=== PATIENT | female | born 1950 | race Caucasian/White ===

== ENCOUNTER 2018-02-26 12:34 | Day surgery (SDC) | payer OTHER ==
--- OUTSIDE RECORDS SUMMARY | 2018-02-26 12:38 | XMS REPORT | Clinical Summary ---
:1950 Author Organization [facility] Address [address] [place] [address] Care Team Providers Name Role Phone Lindsey Epperson MD Primary Care Provider Allergies Active Allergy Reactions Severity Noted Date Comments Adhesive 12/10/2015 Ferumoxytol 12/10/2015 Penicillins 12/10/2015 Sulfa (Sulfonamide Antibiotics) 12/10/2015 Tetanus Toxoid Adsorbed 12/10/2015 Dulaglutide 01/02/2018 abdominal pain Current Medications Prescription Sig. Disp. Refills Start End Date Status Date pramipexole (MIRAPEX) Take 0.5 mg by Active 0.5 MG tablet mouth 2 (two) times a day. Takes 1 tab in the morning and 2 tabs at night montelukast Take 10 mg by Active (SINGULAIR) 10 mg mouth nightly. 6 tablet multivitamin Take 1 tablet Active (THERAGRAN) tablet by mouth daily. AMPHETAMINE-DEXTROAMP 30 mg every Active HETAMINE 20 MG tablet morning. 6 biotin 1 mg capsule Take by mouth Active daily. cholecalciferol, Take 2,000 Active vitamin D3, (VITAMIN Units by mouth D3) 1,000 unit daily. capsule calcium Take 1 tablet Active citrate-vitamin D3 by mouth 2 (CITRACAL+D) 315-200 (two) times a mg-unit per tablet day. albuterol (PROAIR Inhale 2 puffs Active HFA) 90 mcg/actuation every 6 (six) inhaler hours as needed for wheezing. butalbital-acetaminop TAKE 1 TO 2 30 tablet 1 Active hen-caff (FIORICET, TABLETS EVERY 6 6 ESGIC) 50-325-40 mg HOURS NEEDED per tablet FOR HEADACHE lidocaine (XYLOCAINE) apply 1-2 grams Active 5 % ointment TO affected 6 AREAS FOUR TIMES DAILY, apply in combination WITH topical PAIN cream (USE last) ONETOUCH ULTRA TEST CHECK TWICE PER 3 Active strip test strips DAY 6 ALPRAZolam (XANAX) Take 0.5 mg by 5 Active 0.5 MG tablet mouth nightly. 6 pantoprazole Take 40 mg by Active (PROTONIX) 40 MG EC mouth daily. tablet buPROPion SR Take 300 mg by 5 Active (WELLBUTRIN SR) 150 mouth every 7 MG 12 hr tablet morning. busPIRone (BUSPAR) 10 1/2 tablet bid 30 tablet 11 Active MG tablet prn 7 levothyroxine Take 1 tablet 30 tablet 05/13/20 Active (SYNTHROID) 150 mcg (150 mcg total) 7 18 tablet by mouth every morning. HYDROcodone-acetamino Active phen (NORCO) 5-325 mg 8 per tablet metoprolol succinate TAKE 1 TABLET 90 tablet 3 Active XL (TOPROL-XL) 25 mg BY MOUTH EVERY 7 24 hr tablet DAY (DISCONTINUE 50MG) citalopram (CeleXA) Take 1 tablet 90 tablet 1 Active 40 MG tablet (40 mg total) 7 by mouth nightly. TAKE 1 TABLET EVERY DAY coenzyme Q10 200 mg Take 200 mg by Active capsule mouth daily. B INFANTIS/B ANI/B Take by mouth. Active WENDY/B BIFID (PROBIOTIC 4X ORAL) fluticasone (FLONASE) 2 sprays by Active 50 mcg/actuation Each Nare route nasal spray daily. ipratropium 2 sprays into Active (ATROVENT) 0.06 % each nostril 4 nasal spray (four) times a day. mometasone-formoterol Inhale 2 puffs Active (DULERA 100) 100-5 2 (two) times a mcg/actuation inhaler day. rosuvastatin TAKE 1 TABLET 90 tablet 3 Active (CRESTOR) 10 MG BY MOUTH EVERY 8 tablet DAY ranitidine (ZANTAC) Take 1 tablet 90 tablet 3 Active 300 MG tablet (300 mg total) 8 by mouth nightly. triamterene-hydrochlo TAKE 1 TABLET 90 tablet 3 Active rothiazid BY MOUTH EVERY 8 (MAXZIDE-25) 37.5-25 DAY mg per tablet exenatide Inject 2 mg 4 Syringe 5 Active microspheres under the skin 8 (BYDUREON BCISE) 2 once a week. mg/0.85 mL auto-injector glimepiride (AMARYL) TAKE 1 TABLET 30 tablet 0 Active 2 MG tablet BY MOUTH EVERY 8 DAY BEFORE BREAKFAST buPROPion XL Take 150 mg by 05/16/20 Discontinued (WELLBUTRIN XL) 150 mouth every 17 MG 24 hr tablet morning. citalopram (CeleXA) Take 40 mg by 08/18/20 Discontinued 40 MG tablet mouth nightly. 5 17 TAKE 1 TABLET EVERY DAY esomeprazole (NexIUM) Take 40 mg by 05/16/20 Discontinued 40 MG capsule mouth 2 (two) 17 times a day. HYDROcodone-acetamino Take 1 tablet 07/10/20 Discontinued phen (NORCO) 5-325 mg by mouth as 17 per tablet needed. clobetasol (TEMOVATE) as needed. 05/16/20 Discontinued 0.05 % ointment 6 17 nystatin (MYCOSTATIN) Apply topically 30 g 0 03/22/20 powder 4 (four) times 6 17 a day. ranitidine (ZANTAC) Take 1 tablet 90 tablet 3 05/16/20 Discontinued 300 MG (300 mg total) 7 17 tabletIndications: by mouth Gastroesophageal nightly. reflux disease with esophagitis VYVANSE 60 mg capsule Take 60 mg by 0 05/16/20 Discontinued mouth as 6 17 needed. rosuvastatin Take 1 tablet 90 tablet 1 05/29/20 Discontinued (CRESTOR) 10 MG (10 mg total) 7 17 tablet by mouth daily. triamterene-hydrochlo TAKE 1 TABLET 90 tablet 3 12/16/19 Discontinued rothiazid BY MOUTH EVERY 7 18 (MAXZIDE-25) 37.5-25 DAY mg per tablet metoprolol succinate TAKE 1 TABLET 90 tablet 1 07/25/20 Discontinued XL (TOPROL-XL) 25 mg BY MOUTH EVERY 7 17 24 hr tablet DAY (DISCONTINUE 50MG) levothyroxine Take 1 tablet 30 tablet 1 04/12/20 Discontinued (SYNTHROID) 200 mcg (200 mcg total) 7 17 tablet by mouth every morning. linagliptin Take 1 tablet 60 tablet 0 07/10/20 Discontinued (TRADJENTA) 5 mg (5 mg total) by 7 17 tablet mouth daily with breakfast. levothyroxine Take 1 tablet 30 tablet 11 05/12/20 Discontinued (SYNTHROID, LEVOXYL) (150 mcg total) 7 17 150 mcg tablet by mouth every morning. levothyroxine Take 137 mcg by 30 tablet 11 05/13/20 Discontinued (SYNTHROID, LEVOXYL) mouth every 7 17 137 mcg tablet morning. metoprolol succinate 08/29/19 Discontinued XL (TOPROL XL) 25 mg 8 18 24 hr tablet [id number] TAKE TWO 1 07/10/20 Discontinued hydrocod 320.5-30-16 CAPSULES BY 7 17 mg capsule MOUTH EVERY 4 TO 6 HOURS NEEDED FOR PAIN HYDROcodone-acetamino 1 po q 6-8 60 tablet 05/26/20 phen (NORCO) 7.5-325 hours prn pain 7 17 mg per tablet rosuvastatin TAKE 1 TABLET 90 tablet 1 11/15/19 Discontinued (CRESTOR) 10 MG BY MOUTH EVERY 7 18 tablet DAY predniSONE 1 po tid x 3 18 tablet 0 06/09/20 (DELTASONE) 20 mg days, 1 po bid 7 17 tablet x 3 days, then 1 po daily linagliptin Take 1 tablet 21 tablet 0 12/07/19 Discontinued (TRADJENTA) 5 mg (5 mg total) by 7 18 tablet mouth daily with breakfast. ranitidine (ZANTAC) Take 300 mg by 11 12/13/19 Discontinued 300 MG tablet mouth nightly. 7 18 citalopram (CeleXA) Take 1 tablet 90 tablet 1 08/18/20 Discontinued 40 MG tablet (40 mg total) 7 17 by mouth nightly. TAKE 1 TABLET EVERY DAY traMADol (ULTRAM) 50 Take 1 tablet 20 tablet 0 10/09/19 mg tablet (50 mg total) 8 18 by mouth every 4 (four) hours as needed for moderate pain for up to 10 days. gabapentin Take 1 tablet 30 capsule 0 12/07/19 Discontinued (NEURONTIN) 300 mg up to 3 times 8 18 capsule daily for nerve pain. dulaglutide Inject 0.75 mg 4 Syringe 11 01/05/20 Discontinued (TRULICITY) 0.75 under the skin 8 18 mg/0.5 mL pen once a week. injectorIndications: Type 2 diabetes mellitus without complication, with long-term current use of insulin ranitidine (ZANTAC) Take 1 tablet 90 tablet 3 12/13/19 Discontinued 300 MG tablet (300 mg total) 8 18 by mouth nightly. glimepiride (AMARYL) Take 1 tablet 30 tablet 0 02/26/20 Discontinued 2 MG tablet (2 mg total) by 8 18 mouth daily before breakfast. Active Problems Problem Noted Date History of EMG 12/09/2017 Overview: 11/2017 left carpal tunnel, And sensorineuropathy Dr Dutta Breakage of internal fixation device in bone 08/11/2017 H/O mammogram 07/18/2017 Overview: 06/2017 wnjuly Chronic bilateral low back pain without sciatica 05/31/2017 Bursitis of hip 05/17/2017 Postsurgical arthrodesis status 05/16/2017 Spondylosis of lumbar region without myelopathy or radiculopathy 05/16/2017 Nonallopathic lesion of hip region 05/16/2017 Status post lumbar laminectomy 05/16/2017 Skin cancer 03/17/2017 Overview: 02/2017 right cheek melanoma in situ Right hernandez benign Post-traumatic osteoarthritis of right foot 01/24/2017 Breakdown (mechanical) of other internal orthopedic devices, implants and grafts, initial encounter History of nuclear stress test 01/06/2017 Overview: 12/26/2016 Dr Landers wnl Encounter for eye exam in patient with type 2 diabetes mellitus 07/22/2016 Overview: 06/2016 wnl 07/2017 Dr Mccloud is wnl 01/2018 Dr Mccloud is wnl Hx of bone density study 06/26/2016 Overview: 05/2016 L hip -0.7 and spine not done Dr Lombardi Gastroesophageal reflux disease 12/10/2015 Hyperhidrosis 12/10/2015 Insomnia 12/10/2015 Restless legs syndrome 12/10/2015 Iron deficiency 05/07/2014 Arthritis 06/22/2012 Cough 06/22/2012 HLD (hyperlipidemia) 06/22/2012 Overview: Overview: SNOMED/[place] [id number] Hypertension 06/22/2012 Overview: Overview: Evaluation Dr. Landers 08/2014 echo with HTN heart disease, RBBB, left ventricular outflow gradient without obstruction, mild LVH, small pericardial effusion Hypothyroidism 06/22/2012 Overview: Overview: 09/2015 add 30mg of armour to her 120mg Type 2 diabetes mellitus without complication, with long-term current use of insulin Ulcerative colitis 06/22/2012 Overview: Overview: Dr. Hart for consideration Dr. Cleveland Mixon Encounters Date Type Specialty Care Team Description 02/25/2018 Refill Internal Jackie Epperson MD 01/23/2018 Orders Only Jackie Callaway MD 01/09/2018 Hospital Encounter Aris Rust MD 01/09/2018 Hospital Encounter Aris Rust MD 01/09/2018 Hospital Encounter Aris Rust MD 01/09/2018 Procedure Pass Radiology 01/09/2018 Procedure Pass Radiology 01/09/2018 Ancillary Orders Aris Rust MD 01/09/2018 Procedure Pass Radiology 01/09/2018 Ancillary Orders Aris uRst MD 01/04/2018 Office Visit Orthopedic Cosculluela, Post-traumatic Surgery Efraín Pang MD osteoarthritis of right foot (Primary Dx) 01/03/2018 Orders Only Orthopedic Stein, Pelvic pain (Primary Dx) Surgery Emilie, MA 01/02/2018 Orders Only Jackie Callaway MD 01/01/2018 Telephone Internal Jackie Epperson MD 12/15/2017 Refill Internal Jackie Epperson MD 12/14/2017 Orders Only Orthopedic Pepe Elder Lipoma of right lower Surgery JAKOB Caban extremity (Primary Dx) 12/12/2017 Orders Only Internal Jackie Epperson MD 12/12/2017 Refill Internal Paola Toney MA [facility] 12/06/2017 Office Visit Internal Zeenat, Chronic left-sided low back pain without sciatica (Primary Dx); Jackie Motley, Type 2 diabetes mellitus without complication, with long-term current use of insulin; Essential hypertension; Irritant contact dermatitis due to other agents; Obesity (BMI 30.0-34.9) 12/06/2017 Orders Only Orthopedic Gorge Capone, Post-traumatic Surgery LAMAR osteoarthritis of right foot (Primary Dx) 12/04/2017 Documentation Orthopedic Lashay Zarate, Surgery [place] 11/29/2017 Office Visit Orthopedic Aris Meehan Chronic bilateral low back pain without sciatica (Primary Dx); Wai Encinas MD Spondylosis of lumbar region without myelopathy or radiculopathy; Sagittal plane imbalance; Adjacent segment disease with kyphosis; Spinal stenosis of lumbar region with neurogenic claudication; Chronic low back pain without sciatica, unspecified back pain laterality; Degeneration of intervertebral disc of lumbar region 11/16/2017 Office Visit General Surgery Gorge Hart Peristomal dermatitis ( Primary Dx); MD Omid Parastomal hernia without obstruction or gangrene Chuyita Ortiz NP-C 11/14/2017 Refill Internal Jackie Epperson MD 11/02/2017 Office Visit Orthopedic Maria E Post-traumatic Surgery Efraín Pang MD osteoarthritis of right foot (Primary Dx) 10/27/2017 Telephone Orthopedic Wendy Hoover, Wai MA 10/05/2017 Office Visit Velia Can of internal Surgery Efraín Pang MD fixation device in bone, initial encounter (Primary Dx) 09/19/2017 Hospital Encounter Orthopedic Maria E Post-traumatic Surgery Efraín Pang MD osteoarthritis of right foot (Primary Dx) 09/19/2017 Anesthesia Event Orthopedic Felipe Szymanski, Surgery Agustina Reveles MD 09/19/2017 Procedure Pass Orthopedic Surgery 09/19/2017 Surgery Orthopedic Cosmariluzlljonas, RIGHT FOOT HARDWARE Surgery Efraín Pang MD REMOVAL 09/12/2017 Procedure Pass Orthopedic Surgery 08/29/2017 Office Visit Internal Zeenat, Pre-operative examination (Primary Dx); Jackie Motley, Essential hypertension; Impaired fasting glucose; Other specified hypothyroidism; Other hyperlipidemia; Gastroesophageal reflux disease without esophagitis; History of DVT (deep vein thrombosis) 08/18/2017 Telephone Internal Mckay, Jackie Theodore MA 08/11/2017 Orders Only Orthopedic Wendy Hoover, Breakage of internal Surgery [place] fixation device in bone, initial encounter (Primary Dx) 08/07/2017 Office Visit Orthopedic Maria E, Breakdown (mechanical) of other internal orthopedic devices, implants and grafts, initial encounter ( Primary Dx); Surgery Efraín Pang MD Post-traumatic osteoarthritis of right foot 08/04/2017 Telephone Internal ZeenatJackie burnette MD 08/01/2017 Telephone Internal ZeenatJackie burnette MD 07/26/2017 Office Visit Orthopedic Elvi Iverson Chronic bilateral low back pain without sciatica (Primary Dx); Wai Caban MD Postsurgical arthrodesis status; Spondylosis of lumbar region without myelopathy or radiculopathy 07/25/2017 Refill Internal ZeenatJackie burnette MD 07/17/2017 Orders Only Internal [place], Visit for screening mammogram; Jackie Theodore MA Parastomal hernia of ileal conduit 07/10/2017 Office Visit Internal Zeenat, Abnormal thyroid function test ( Primary Dx); Jackie Motley, Muscle pain 06/26/2017 Hospital Encounter Radiology Elvi Iverson HNP (herniated nucleus RMD Travis pulposus), lumbar 06/23/2017 Hospital Encounter Radiology Elvi Iverson MD (Department/Provider) 06/19/2017 Orders Only Orthopedic CASSIDY Vargas (herniated nucleus Surgery GIAN Ochoa-C pulposus), lumbar (Primary Dx) 06/15/2017 Telephone Orthopedic Wai Vargas, PA-C 06/14/2017 Telephone Internal Zeen[place], Visit for screening Jackie Motley, mammogram (Primary Dx) 06/12/2017 Procedure Pass Radiology 06/12/2017 Telephone Orthopedic Sam, Status post arthrodesis (Primary Dx); Surgery Anai Caban PA-C Lumbar post-laminectomy syndrome 05/31/2017 Office Visit Orthopedic Elvi Iverson Postsurgical arthrodesis status (Primary Dx); Surgery MD Mee Status post lumbar laminectomy; Chronic bilateral low back pain without sciatica 05/29/2017 Refill Internal Jackie Epperson MD 05/24/2017 Clinical Support Internal Flu vaccine need (Primary Medicine Dx) 05/18/2017 Hospital Encounter Radiology Elvi Iverson Nonallopathic lesion of MD Mee hip region 05/16/2017 Office Visit Orthopedic Elvi Iverson Status post lumbar laminectomy (Primary Dx); Surgery MD Mee Nonallopathic lesion of hip region; Postsurgical arthrodesis status; Spondylosis of lumbar region without myelopathy or radiculopathy; Bursitis of hip, left 05/16/2017 Procedure Pass Radiology 05/16/2017 Ancillary Orders Elvi Kendrick Status post lumbar Surgery MD Mee laminectomy 05/13/2017 Telephone Internal Jackie Epperson MD 05/12/2017 Orders Only Internal Jackie Epperson MD 05/04/2017 Telephone Orthopedic Sam, Wai Caban PA-C 04/12/2017 Office Visit Internal Zeenat, Abnormal thyroid function test ( Primary Dx); Jackie Motley IFG (impaired fasting glucose); Pure hypercholesterolemia 03/17/2017 Abstract Internal Jackie Epperson MD 03/02/2017 Telephone Internal ZeenatJackie burnette MD after 02/25/2017 Immunizations Name Dates Previously Given Next Due FLUZONE HIGH-DOSE PF 05/24/2017 Influenza Trivalent 05/18/2011 Influenza Whole 05/22/2016, 06/04/2015 Pneumococcal Conjugate 13-Valent 07/10/2017 Family History Medical History Relation Name Comments Crohn's disease Daughter Cancer Father Heart disease Father Colon cancer Maternal Grandfather Diabetes Maternal Grandfather Hypertension Mother Kidney disease Mother Osteoporosis Mother Rheumatologic disease Mother Scoliosis Mother Hyperlipidemia Sister Hypertension Sister Ulcerative colitis Son Relation Name Status Comments Daughter Father Maternal Grandfather Mother Alive Sister Alive Son Social History Tobacco Use Types Packs/Day Years Used Date Former Smoker Cigarettes 0.25 15 08/26/1967 - 11/26/1978 Smokeless Tobacco: Never Used Alcohol Use Drinks/Week oz/Week Comments No Sex Assigned at Date Recorded Not on file Last Filed Vital Signs Vital Sign Reading Time Taken Blood Pressure 120/76 12/06/2017 3:10 PM CDT Pulse 90 12/06/2017 2:28 PM CDT Temperature 36.5 C (97.7 F) 09/19/2017 3:13 PM [employer] Respiratory Rate 14 09/19/2017 3:13 PM [employer] Oxygen Saturation 98% 12/06/2017 2:28 PM CDT Inhaled Oxygen Concentration - - Weight 93.4 kg (206 lb) 12/06/2017 2:28 PM CDT Height 165.1 cm (5' 5") 12/06/2017 2:28 PM CDT Body Mass Index 34.28 12/06/2017 2:28 PM CDT Plan of Treatment Health Maintenance Due Date Last Done Comments BREAST CANCER SCREENING 2001 SHINGRIX VACCINE (#1) 2001 ZOSTER VACCINE 2011 PNEUMOCOCCAL POLYSACCHARIDE VACCINE 2016 AGE 65 AND OVER DIABETIC FOOT EXAM 09/07/2017 09/07/2016, 09/07/2016 INFLUENZA VACCINE 03/28/2018 05/24/2017, 05/22/2016, 05/18/2016, Additional history exists DIABETIC RETINAL EYE EXAM 02/09/2020 02/08/2018, 08/24/2016 COLON CANCER SCREENING 08/22/2024 08/22/2014 PNEUMOCOCCAL-13 Completed 07/10/2017 Procedures Procedure Name Priority Date/Time Associated Comments Diagnosis MRI ABD/PELVIC Routine 01/02/2018 5:00 Results for this EXTERNAL STUDY PM CDT procedure are in the results section. MRI SPINE EXTERNAL Routine 01/02/2018 4:35 Results for this STUDY PM CDT procedure are in the results section. MRI SPINE EXTERNAL Routine 01/02/2018 4:19 Results for this STUDY PM CDT procedure are in the results section. POC GLUCOSE Routine 09/19/2017 9:20 Results for this AM [employer] procedure are in the results section. OR FL > 1 HOUR Routine 09/19/2017 9:07 Results for this AM [employer] procedure are in the results section. NH AN ELECTIVE Routine 09/19/2017 7:46 SUPRAGLOTTIC AIRWAY AM [employer] Procedure Note - Tee Rosales CRNA - 09/19/2017 7:46 AM [employer] Airway Date/Time: 09/19/2017 7:35 AM Performed by: TEE ROSALES Authorized by: AGUSTINA DERAS Location: OR Urgency: Elective Difficult Airway: No Resident/BACK SHOE WORKER/AA: TEE ROSALES Performed by: resident/BACK SHOE WORKER/AA Preoxygenated with 100% O2: Yes C-spine Precautions Maintained Throughout: Yes Mask Ventilation: Easy mask Final Airway Type: Supraglottic airway Final LMA: I-Gel LMA Size: 4 Number of Attempts at Approach: 1 REMOVAL, HARDWARE, FOOT 09/19/2017 7:30 AM [employer] Breakage of internal fixation device in bone, initial encounter Case Notes LARGE C-ARM, @9013 [employer]IA [employer] R/S FROM 09/05 TO 09/12-08/31/17TW, @0848 [employer] R/S FROM 09/12 TO 09/19-09/12/17TW Special Needs 1 HR PROCEDURE, SUPINE POSITION, LARGE C-ARM, ALBA [employer] SCREW REMOVAL SET POC GLUCOSE Routine 09/19/2017 7:19 Results for AM [employer] this procedure are in the results section. HEMOGLOBIN A1C Routine 08/29/2017 12:42 Results for PM [employer] this procedure are in the results section. LIPID PANEL Routine 08/29/2017 12:42 Results for PM [employer] this procedure are in the results section. PT AND PTT Routine 08/29/2017 12:42 History of DVT (deep vein Results for PM [employer] thrombosis) this procedure are in the results section. URINALYSIS, Routine 08/29/2017 12:42 Essential hypertension Results for COMPLETE, WITH PM [employer] this procedure REFLEX TO CULTURE are in the results section. CBC WITH PLATELET Routine 08/29/2017 12:42 Pre-operative examination Results for AND DIFFERENTIAL PM [employer] this procedure are in the results section. COMPREHENSIVE Routine 08/29/2017 12:42 Pre-operative examination Results for METABOLIC PANEL PM [employer] Essential hypertension this procedure Impaired fasting glucose are in the results section. XR ANKLE 3+ VW RIGHT Routine 08/07/2017 2:04 Breakdown (mechanical) of Results for PM [employer] other internal orthopedic this procedure devices, implants and are in the grafts, initial encounter results Post-traumatic section. osteoarthritis of right foot XR FOOT 3+ VW RIGHT Routine 08/07/2017 2:04 Breakdown (mechanical) of Results for PM [employer] other internal orthopedic this procedure devices, implants and are in the grafts, initial encounter results Post-traumatic section. osteoarthritis of right foot T4, FREE Routine 07/10/2017 11:35 Abnormal thyroid function Results for AM [employer] test this procedure are in the results section. THYROID STIMULATING Routine 07/10/2017 11:35 Abnormal thyroid function Results for HORMONE AM [employer] test this procedure are in the results section. CREATINE KINASE, Routine 07/10/2017 11:35 Muscle pain Results for TOTAL (CPK) AM [employer] this procedure are in the results section. HC INJ EPID Routine 06/26/2017 12:06 HNP (herniated nucleus Results for LUM/SACRAL UNI W IMG PM CDT pulposus), lumbar this procedure are in the results section. POC GLUCOSE Routine 06/26/2017 10:45 Results for AM CDT this procedure are in the results section. MRI LUMBAR SPINE WO Routine 06/14/2017 11:11 Status post arthrodesis Results for CONTRAST AM CDT Lumbar post-laminectomy this procedure syndrome are in the results section. MRI LOWER EXTREMITY Routine 05/18/2017 6:03 Nonallopathic lesion of Results for JOINT W WO CONTRAST PM CDT hip region this procedure RIGHT are in the results section. NH INJECT TRIGGER Routine 05/17/2017 7:22 Bursitis of hip, left Results for POINT, 1 OR 2 AM CDT this procedure are in the results section. XR HIP 2-3 VIEWS Routine 05/16/2017 3:47 Nonallopathic lesion of Results for RIGHT PM CDT hip region this procedure are in the results section. XR LUMBAR SPINE Routine 05/16/2017 3:14 Status post lumbar Results for COMPLETE 4+ VW PM CDT laminectomy this procedure are in the results section. MICROALBUMIN / Routine 05/10/2017 4:11 Results for CREATININE URINE PM CDT this procedure RATIO are in the results section. T4, FREE Routine 05/10/2017 4:11 Abnormal thyroid function Results for PM CDT test this procedure are in the results section. THYROID STIMULATING Routine 05/10/2017 4:11 Abnormal thyroid function Results for HORMONE PM CDT test this procedure are in the results section. HEMOGLOBIN A1C Routine 05/10/2017 4:11 IFG (impaired fasting Results for PM CDT glucose) this procedure are in the results section. COMPREHENSIVE Routine 05/10/2017 4:11 IFG (impaired fasting Results for METABOLIC PANEL PM CDT glucose) this procedure are in the results section. LIPID PANEL Routine 05/10/2017 4:11 Pure hypercholesterolemia Results for PM CDT this procedure are in the results section. after 02/25/2017 Results MRI Abd/Pelvic External Study (01/02/2018 5:00 PM) Narrative Performed At This exam was not acquired at a [facility] facility and [facility] not [facility] interpreted by a [facility] Provider.The exam was imported into our imaging system for comparisons purposes. Performing Organization Address City/[facility]/Zipcode Phone Number [facility] [address] [place] [address] MRI Spine External Study (01/02/2018 4:35 PM)Only the most recent of2 resultswithin the time period is included. Narrative Performed At This exam was not acquired at a [facility] facility and has not been [facility] interpreted by a [facility] Provider.The exam was imported into our imaging system for comparisons purposes. Performing Organization Address [facility] Phone Number [facility] [address] [place] [phone] POC glucose (09/19/2017 9:20 AM)Only the most recent of3 resultswithin the time period is included. POC glucose 122 (H) 65 - 99 mg/dL [facility] DEPARTMENT OF PATHOLOGY AND Comment: [facility]IC[facility] Notified RN Meter ID: [id number] [employer] [place] Shearer: Juve Borja Performing Organization Address City/[facility]/Zipcode Phone Number [facility] DEPARTMENT OF PATHOLOGY AND [address] [place] [address] MEDICINE [place] > I Hour (09/19/2017 9:07 AM) Narrative Performed At IMPRESSION: C-arm fluoroscopy over 1 hour was provided in the OR for the [facility] referring physician. A radiologist was not present during the procedure. Refer to the Operative report issued by the performing provider for procedure details. LOCATION:[facility] 19 OR ROOM 3 PROCEDURE:RIGHT FOOT HARDWARE REMOVAL START TIME:729 END TIME:906 FLUORO TIME:1 MIN 03 SECS DOSE (mGy):1.73 mGy TECH(S):SS/TS Procedure Note Interface, Radiology Results Incoming - 09/19/2017 4:02 PM [employer] IMPRESSION: C-arm fluoroscopy over 1 hour was provided in the OR for the referring physician. A radiologist was not present during the procedure. Refer to the Operative report issued by the performing provider for procedure details. LOCATION: [facility] 19 OR ROOM 3 PROCEDURE: RIGHT FOOT HARDWARE REMOVAL START TIME: 0730 END TIME: 09 FLUORO TIME: 1 MIN 03 SECS DOSE (mGy): 1.73 mGy TECH(S): SS/TS Performing Organization Address City/[facility] Cent[facility]ode Phone Number [address] [place] [address] URINALYSIS, COMPLETE, WITH REFLEX TO CULTURE (08/29/2017 12:42 PM) Color, UA YELLOW YELLOW [facility] Appearance CLEAR CLEAR [facility] Specific gravity, urine 1.015 1.001 - 1.035 [facility] pH, urine 6.0 5.0 - 8.0 [facility] [place] Glucose, urine NEGATIVE NEGATIVE [facility] Bilirubin, UA NEGATIVE NEGATIVE [facility] Ketones, UA NEGATIVE NEGATIVE [facility] Occult blood, urine NEGATIVE NEGATIVE [facility] Protein, UA NEGATIVE NEGATIVE [facility] Nitrite, UA NEGATIVE NEGATIVE [facility] Leukocyte esterase, UA NEGATIVE NEGATIVE [facility] WBC, UA NONE SEEN < OR=5 /HPF [facility] RBC, UA NONE SEEN < OR=2 /HPF [facility] [place] Squamous epithelial NONE SEEN < OR=5 /HPF [facility] cells, UA Bacteria, UA NONE SEEN NONE SEEN /HPF [facility] Hyaline casts, UA NONE SEEN NONE SEEN /LPF [facility] Reflex NO CULTURE INDICATED [facility] Resulting Agency Comment Performing Organization Information: Site ID: [id number] Name: [facility] Address: [address] [place] [phone] Director: Paula Mendoza MD Performing Organization Address [facility] Phone Number [facility] [place] [phone] PT and PTT (08/29/2017 12:42 PM) PTT 26 22 - 34 sec [facility] Comment: This test has not been validated for monitoring unfractionated heparin therapy. For testing that is validated for this type of therapy, please refer to the Heparin Anti-Xa assay (test code 49590). For additional information, please refer to http://education.TeeBeeDee/faq/BAY668 (This link is being provided for informational/educational purposes only.) INR 1.0 [facility] Comment: Reference Range 0.9-1.1 Moderate-intensity Warfarin Therapy 2.0-3.0 Higher-intensity Warfarin Therapy 3.0-4.0 Prothrombin time 10.5 9.0 - 11.5 sec [facility] [employer] [facility]INE Specimen Blood Resulting Agency Comment Performing Organization Information: Site ID: RGA Name: [facility] Address: [address] [place] [phone] Director: Paula Mendoza MD Performing Organization Address City/State/[facility] Cent[facility]ode Phone Number [facility] [address] [address] CBC with platelet and differential (08/29/2017 12:42 PM) WBC 8.6 3.8 - 10.8 Thousand/uL [facility] RBC 5.05 3.80 - 5.10 Million/uL [facility] [employer] [facility] HGB 14.5 11.7 - 15.5 g/dL [facility] HCT 44.0 35.0 - 45.0 % [facility] MCV 87.1 80.0 - 100.0 fL [facility] MCH 28.7 27.0 - 33.0 pg [facility] MCHC 33.0 32.0 - 36.0 g/dL [facility] RDW 13.4 11.0 - 15.0 % [facility] Platelet count 320 140 - 400 Thousand/uL [facility] [employer] [facility] MPV 10.7 7.5 - 12.5 fL [facility] Neutrophils, absolute 5,719 1,500 - 7,800 cells/uL [facility] [employer] [facility] Lymphocytes, absolute 2,150 850 - 3,900 cells/uL [facility] Monocytes, absolute 447 200 - 950 cells/uL [facility] Eosinophils, absolute 198 15 - 500 cells/uL [facility] Basophils, absolute 86 0 - 200 cells/uL [facility] Neutrophils 66.5 % [facility] Lymphocytes 25.0 % [facility] Monocytes 5.2 % [facility] Eosinophils 2.3 % [facility] Basophils + RC 1.0 % [facility] Specimen Blood Resulting Agency Comment Performing Organization Information: Site ID: RGA Name: [facility] Address: [address] [place] [phone] Director: Paula Mendoza MD Performing Organization Address City/State/[facility] Cent[facility]ode Phone Number [facility] [address] [address] Hemoglobin A1c (08/29/2017 12:42 PM)Only the most recent of2 resultswithin the time period is included. Hemoglobin A1C 6.5 (H) <5.7 % of total [facility] Comment: Hgb [facility]INE For someone without known diabetes, a hemoglobin A1c value of 6.5% or greater indicates that they may have diabetes and this should be confirmed with a follow-up test. For someone with known diabetes, a value <7% indicates that their diabetes is well controlled and a value greater than or equal to 7% indicates suboptimal control. A1c targets should be individualized based on duration of diabetes, age, comorbid conditions, and other considerations. Currently, no consensus exists regarding use of hemoglobin A1c for diagnosis of diabetes for children. Resulting Agency Comment Performing Organization Information: Site ID: RGA Name: [facility] Address: [address] [place], [place] [id number] Director: Paula Mendoza MD Performing Organization Address City/State/Zipcode [place] [address] Lipid panel (08/29/2017 12:42 PM)Only the most recent of2 resultswithin the time period is included. Cholesterol, total 190 <200 mg/dL [facility] HDL cholesterol 64 >50 mg/dL [facility] Triglycerides 168 (H) <150 mg/dL [facility] LDL cholesterol 99 mg/dL (calc) [facility] calculated Comment: SUNSHINE Reference range: <100 Desirable range <100 mg/dL for patients with CHD or diabetes and <70 mg/dL for diabetic patients with known heart disease. LDL-C is now calculated using the Zia-Noman calculation, which is a validated novel method providing better accuracy than the Friedewald equation in the estimation of LDL-C. Zia SS et al. LEON. 2013;310(19): 6409-2232 (http://education.TeeBeeDee/faq/SZH027) Cholesterol/HDL ratio 3.0 <5.0 (calc) [facility] Non-HDL cholesterol 126 <130 mg/dL [facility] Comment: (calc) SUN[facility]INE For patients with diabetes plus 1 major ASCVD risk factor, treating to a non-HDL-C goal of <100 mg/dL (LDL-C of <70 mg/dL) is considered a therapeutic option. Resulting Agency Comment Performing Organization Information: Site ID: [id number] Name: [facility] Address: [address] [place] [phone] Director: Paula Mendoza MD Performing Organization Address City/State/Zipcode Phone Number TAYLOR VAZQUEZ [facility] [address] [place] [phone] Comprehensive metabolic panel (08/29/2017 12:42 PM)Only the most recent of2 resultswithin the time period is included. Glucose 99 65 - 99 mg/dL [facility] Comment: SUNSHINE Fasting reference interval BUN, whole blood 19 7 - 25 mg/dL [facility] Creatinine 0.74 0.50 - 0.99 [facility] Comment: mg/dL SUN[facility]INE For patients >49 years of age, the reference limit for Creatinine is approximately 13% higher for people identified as -Ugandan. EGFR Non-Afr. Ugandan 84 > OR=60 [facility] mL/min/1.73m2 [facility] EGFR 98 > OR=60 [facility] mL/min/1.73m2 [facility] BUN/creatinine ratio NOT APPLICABLE 6 - 22 (calc) [facility] Sodium 142 135 - 146 mmol/L [facility] Potassium 4.0 3.5 - 5.3 mmol/L [facility] Chloride 101 98 - 110 mmol/L [facility] CO2 33 (H) 20 - 31 mmol/L [facility] Calcium 9.8 8.6 - 10.4 mg/dL [facility] Protein 7.3 6.1 - 8.1 g/dL [facility] Albumin, S 4.5 3.6 - 5.1 g/dL [facility] Globulin, total 2.8 1.9 - 3.7 g/dL [facility] (calc) [facility] Albumin/globulin ratio 1.6 1.0 - 2.5 (calc) [facility] Total bilirubin 1.0 0.2 - 1.2 mg/dL [facility] Alkaline phosphatase 104 33 - 130 U/L [facility] AST 23 10 - 35 U/L [facility] ALT 23 6 - 29 U/L [facility] Specimen Blood Resulting Agency Comment Performing Organization Information: Site ID: BONY Name: [facility] Address: [address] [place] [phone] Director: Paula Mendoza MD Performing Organization Address [facility] Phone Number [facility] [address] [phone] XR Ankle 3+ Vw Right (08/07/2017 2:04 PM) Narrative Performed At 3 views of the right ankle weightbearing fashion shows no acute osseous [facility] abnormalities. 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 There is a triple arthrodesis that is well-healed. Please refer to the foot radiograph dictation for details. Performing Organization Address [facility] Phone Number [address] [place] [address] XR Foot 3+ Vw Right (08/07/2017 2:04 PM) Narrative Performed At 3 views of the right foot in weightbearing fashion shows a well-healed [facility] triple arthrodesis. The hindfoot appears to be a slight amount of valgus. The hardware is in place without evidence of breakage or loosening. There is also a first tarsal metatarsal fusion that appears to be well-healed. 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 Performing Organization Address [facility] Phone Number [address] [place] [address] Thyroid stimulating hormone (07/10/2017 11:35 AM)Only the most recent of2 resultswithin the time period is included. TSH 0.66 0.40 - 4.50 mIU/L [facility] Specimen Blood Resulting Agency Comment Performing Organization Information: Site ID: RGA Name: [facility] Address: [address] [place] [phone] Director: Paula Mendoza MD Performing Organization Address [facility] Phone Number [facility] [address] [address] T4, free (07/10/2017 11:35 AM)Only the most recent of2 resultswithin the time period is included. T4, free 1.6 0.8 - 1.8 ng/dL [facility] Specimen Blood Resulting Agency Comment Performing Organization Information: Site ID: RGA Name: [facility] Address: [address] [place] [phone] Director: Paula Mendoza MD Performing Organization Address [facility] Phone Number TAYLOR [facility] [address] [place] [phone] Creatine kinase, total (CPK) (07/10/2017 11:35 AM) Creatine kinase 94 29 - 143 U/L [facility] Specimen Blood Resulting Agency Comment Performing Organization Information: Site ID: [id number] Name: [facility] Address: [address] [place] [phone] Director: Paula Mendoza MD Performing Organization Address [facility] Phone Number TAYLOR [facility] [address] [place] [phone] IR Nerve Root Block (06/26/2017 12:06 PM) Narrative Performed At EXAMINATION:IR EPIDURAL STEROID INJECT TRANSFORAM [facility] COMPARISON:Routine May 2017 lumbar spine MRI CLINICAL HISTORY:Left groin and anterior thigh pain. Review of the MRI demonstrates stenosis of the left L1-2 neural foramen with potential compromise the L1 root. Procedure: Moderate sedation was done with IV Fentanyl and Versed with usual monitoring. Total face time was 10 minutes. Under fluoroscopic guidance a 25-gauge spinal needle was placed into the left L1 to neural foramen. The correct position the needle was verified by contact with the L1 nerve root which caused pain into the patient's leg. The needle position was further verified by contrast injection which outlined the nerve root sheath. Additionally the needle tip was observed to be in the neural foramina on biplane fluoroscopy. The region of the nerve root sheath was injected with 4 mg of dexamethasone mixed with 1.5 cc of 0.75% bupivacaineThe patient tolerated the procedure well and was returned to [facility] for recovery. After the procedure the patient tolerated walked around the department which reliably caused her anterior thigh pain. She denied any pain and reported numbness in the distribution of the L1 nerve root. IMPRESSION: Uneventful nerve root block. The left L1 nerve root is probably the generator of the patient's left groin and anterior thigh pain. Note: Total fluoroscopy time was 2 minutes 42 seconds. 2 radiographs. [facility]-[id number] Procedure Note Interface, Radiology Results Incoming - 06/26/2017 2:13 PM CDT EXAMINATION: IR EPIDURAL STEROID INJECT TRANSFORAM COMPARISON: Routine May 2017 lumbar spine MRI CLINICAL HISTORY: Left groin and anterior thigh pain. Review of the MRI demonstrates stenosis of the left L1-2 neural foramen with potential compromise the L1 root. Procedure: Moderate sedation was done with IV Fentanyl and Versed with usual monitoring. Total face time was 10 minutes. Under fluoroscopic guidance a 25- gauge spinal needle was placed into the left L1 to neural foramen. The correct position the needle was verified by contact with the L1 nerve root which caused pain into the patient's leg. The needle position was further verified by contrast injection which outlined the nerve root sheath. Additionally the needle tip was observed to be in the neural foramina on biplane fluoroscopy. The region of the nerve root sheath was injected with 4 mg of dexamethasone mixed with 1.5 cc of 0.75% bupivacaineThe patient tolerated the procedure well and was returned to [facility] for recovery. After the procedure the patient tolerated walked around the department which reliably caused her anterior thigh pain. She denied any pain and reported numbness in the distribution of the L1 nerve root. IMPRESSION: Uneventful nerve root block. The left L1 nerve root is probably the generator of the patient's left groin and anterior thigh pain. Note: Total fluoroscopy time was 2 minutes 42 seconds. 2 radiographs. [facility]-[id number] Performing Organization Address City/State/Zipcode Phone Number [facility] [address] [place] [address] MRI Lumbar Spine Wo Contrast (06/14/2017 11:11 AM) Narrative Performed At EXAMINATION:MRI LUMBAR SPINE WO CONTRAST RADIMAYCOL CLINICAL HISTORY:Z98.1 Arthrodesis status, M96.1 Postlaminectomy syndrome not elsewhere classified, back left hip and left thigh pain COMPARISON:None. TECHNIQUE: Multiplanar MRI imaging withoutIV Gadolinium was performed. IMPRESSION: Posterior fusion with bilateral pedicle screws and interlocking rods extending from L3 to S1 levels with chronic grade 2 anterior listhesis of L5 on S1 level and evidence of solid fusion of the disc. Po sterior laminectomy seen at L4-S1 levels. There is no canal stenosis. There is a chronic right foraminal narrowing at L5-S1 level. Spondylotic mild disc bulges at L1-L2 and L2-L3 levels with no canal stenosis. There is no foraminal narrowing. The conus medullaris and cauda equina are unremarkable. The paravertebral soft tissues are unremarkable. Mild spondylotic disc space narrowing with posterior disc bulge at T12-L1 level with no canal stenosis or foraminal compromise. [facility]-[id number] Procedure Note Hm Interface, Radiology Results Incoming - 06/14/2017 1:21 PM CDT EXAMINATION: MRI LUMBAR SPINE WO CONTRAST CLINICAL HISTORY: Z98.1 Arthrodesis status, M96.1 Postlaminectomy syndrome not elsewhere classified, back left hip and left thigh pain COMPARISON: None. TECHNIQUE: Multiplanar MRI imaging without IV Gadolinium was performed. IMPRESSION: Posterior fusion with bilateral pedicle screws and interlocking rods extending from L3 to S1 levels with chronic grade 2 anterior listhesis of L5 on S1 level and evidence of solid fusion of the disc. Posterior laminectomy seen at L4-S1 levels. There is no canal stenosis. There is a chronic right foraminal narrowing at L5-S1 level. Spondylotic mild disc bulges at L1-L2 and L2-L3 levels with no canal stenosis. There is no foraminal narrowing. The conus medullaris and cauda equina are unremarkable. The paravertebral soft tissues are unremarkable. Mild spondylotic disc space narrowing with posterior disc bulge at T12-L1 level with no canal stenosis or foraminal compromise. [facility]-[id number] Performing Organization Address City/State/Zipcode Phone Number [facility] [address] [place] [address] MRI Lower Extremity Joint W Wo Contrast Right (05/18/2017 6:03 PM) Narrative Performed At EXAMINATION:MRI LOWER EXTREMITY JOINT W WO CONTRAST RIGHT [facility] CLINICAL HISTORY:M99.9 Biomechanical lesionunspecified, hip pain COMPARISON: X-rays dated 05/16/2017 TECHNIQUE: MRI of the hips with special attention to the right hip was performed using routine protocol with and without gadolinium contrast. IMPRESSION: 1.No subcutaneous, intramuscular or osseous mass is identified in the right hip corresponding to the plain film abnormality. This may have represented white matter imaging from the gluteal muscles. 2.Mild heterogeneous marrow in the proximal femur and pelvis most compatible with red marrow reconversion. No suspicious marrow signal abnormalities. No fractures. No femoral head avascular necrosis or femoral neck stress fractures. 3.Slight enhancement and edema associated with the gluteus minimus tendon at its insertion compatible with mild tendinitis. The gluteus medias tendon is intact. Minimal partial tearing of the right hamstring tendons. 4.No intramuscular masses, fluid collections or muscle signal abnormalities. 5.Hip joint fluid is physiologic. Joint space preserved without osteoarthritis. 6.No trochanteric or iliopsoas bursitis. The ischiofemoral space is not narrowed. The anterior inferior iliac spine is not enlarged. I do not see findings of psoas impingement. 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 Procedure Note Hm Interface, Radiology Results - 05/18/2017 6:33 PM CDT EXAMINATION: MRI LOWER EXTREMITY JOINT W WO CONTRAST RIGHT CLINICAL HISTORY: M99.9 Biomechanical lesion unspecified, hip pain COMPARISON: X-rays dated 05/16/2017 TECHNIQUE: MRI of the hips with special attention to the right hip was performed using routine protocol with and without gadolinium contrast. IMPRESSION: 1. No subcutaneous, intramuscular or osseous mass is identified in the right hip corresponding to the plain film abnormality. This may have represented white matter imaging from the gluteal muscles. 2. Mild heterogeneous marrow in the proximal femur and pelvis most compatible with red marrow reconversion. No suspicious marrow signal abnormalities. No fractures. No femoral head avascular necrosis or femoral neck stress fractures. 3. Slight enhancement and edema associated with the gluteus minimus tendon at its insertion compatible with mild tendinitis. The gluteus medias tendon is intact. Minimal partial tearing of the right hamstring tendons. 4. No intramuscular masses, fluid collections or muscle signal abnormalities. 5. Hip joint fluid is physiologic. Joint space preserved without osteoarthritis. 6. No trochanteric or iliopsoas bursitis. The ischiofemoral space is not narrowed. The anterior inferior iliac spine is not enlarged. I do not see findings of psoas impingement. 7. 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 Performing Organization Address City/State/Zipcode Phone Number [address] [place] [address] INJECT TRIGGER POINT, 1 OR 2 (05/17/2017 7:22 AM) Narrative Performed At Elvi Iverson MD 05/17/20177:22 AM 1 or 2 Trigger Point Injection Date/Time: 05/16/2017 5:49 PM Performed by: ELVI IVERSON Authorized by: ELVI IVERSON Consent: Consent obtained:Verbal Consent given by:Patient Alternatives discussed:No treatment Indications: Indications:Pain relief Location: Therapeutic Trigger Point Injection:Single/multiple trigger point(s): 1-2 muscle groups Location: hip Hip injected:Left Platelet Rich Plasma Used: no PRP Used EMG Guidance Used: no emg guidance used Left side: Left hip medications administered: 2 mL bupivacaine 0.25 % (2.5 mg/mL); 2 mL lidocaine 10 mg/mL (1 %); 12 mg betamethasone acetate & sodium phosphate 6 mg/mL Pre-procedure details: Neurovascular status: intact Skin preparation:Alcohol Procedure details: Topical anesthetic:Ethyl chloride Syringe type:Normal syringe Needle gauge:22 G Post-procedure details: Patient tolerance of procedure:Tolerated well, no immediate complications Comments: The point of maximum tenderness around the greater trochanteric region of the left hip was located by palpation. The area was cleaned with alcohol and ethyl chloride was used for skin anesthesia. The injection was then performed with reproduction of some of the symptoms during the injection. Patient tolerated the procedure well. XR Hip 2-3 View Right (05/16/2017 3:47 PM) Narrative Performed At 2 views of the right hip are taken today with an emphasis on soft tissue. [facility] Bony structure appears to be satisfactory. On the AP view, there is a egg-shaped rather large soft tissue area with a delineated margin interfacing with the subcutaneous tissue. The central part of this area there is to have some increased density. Performing Organization Address [facility] Phone Number [facility] [address] [place] [address] XR Lumbar Spine Complete 4+ Vw (05/16/2017 3:14 PM) Narrative Performed At X-rays of the lumbar spine reveal internal fixation and solid fusion from HM [facility] L3-S1.Decompressive laminectomy at these levels is demonstrated. There is an angulation at the L2-3 level, with severe degeneration and sclerosis of the adjacent end-plates. Performing Organization Address [facility] Phone Number [facility] [address] [place] [address] Microalbumin / creatinine urine ratio (05/10/2017 4:11 PM) Creatinine, urine, 81 20 - 320 mg/dL [facility] random CASEY Microalbumin, urine 0.4 See Note: mg/dL [facility] Comment: SUNSHINE Reference Range: Reference Range Not established Microalbumin/creatini 5 <30 mcg/mg creat [facility] ne ratio Comment: SUNSHINE The ADA defines abnormalities in albumin excretion as follows: Category Result (mcg/mg creatinine) Normal<30 Microalbuminuria 30-299 Clinical albuminuria > XB=576 The ADA recommends that at least two of three specimens collected within a 3-6 month period be abnormal before considering a patient to be within a diagnostic category. Narrative Performed At FASTING:YES [facility] Resulting Agency Comment Performing Organization Information: Site ID: RGA Name: [facility] Address: [address] [place] [phone] Director: Paula Mendoza MD Performing Organization Address City/State/Zipcode Phone Number [facility] [place] [phone] after 02/25/2017 Insurance Payer Benefit Plan / Group Subscriber ID Type Phone Address [employer] MEDICARE AETNA MEDICARE HMO/PPO [facility] xxxxxxxx HMO [phone] [id number]
[2018-02-26] MEDS ORDERED: HEPARIN 500 UNIT/5 ML SYR IV ONE (12:55)
== END 2018-02-26 13:20 | disposition home or self-care (01) ==
LOC: DS 12:34
PROVIDERS: ATTEND Internal Medicine Gastroenterology
DX: Z45.2 Encounter for adjustment and management of vascular access device (principal)
CPT/HCPCS: 96523; J1642

== ENCOUNTER 2018-10-22 13:06 | Day surgery (SDC) | payer OTHER ==
--- OUTSIDE RECORDS SUMMARY | 2018-10-22 13:13 | XMS REPORT | Clinical Summary ---
:1950 Author Organization [facility] Address [address] [place] [address] Care Team Providers Name Role Phone Lindsey Epperson MD Primary Care Provider Allergies Active Allergy Reactions Severity Noted Date Comments Adhesive Ferumoxytol Penicillins Prednisone Anxiety Low severe anxiety and insomnia Sulfa (Sulfonamide Antibiotics) Tetanus Toxoid Adsorbed Medications Medication Sig Dispensed Refills Start Date End Date Status esomeprazole (NEXIUM) Take 40 mg by mouth 0 Active 40 MG capsule every morning before breakfast. HYDROcodone-acetaminop Take 1 tablet by 0 Active hen (NORCO) 5-325 mg mouth every 6 (six) per tablet hours as needed. Vitamin D 2,000 unit Take 1 capsule by 0 Active Cap mouth daily. lisdexamfetamine Take 50 mg by mouth 0 Active (VYVANSE) 70 MG every morning Pt is capsule taking 50 mg every morning.. buPROPion (WELLBUTRIN Take 150 mg by 0 Active XL) 150 MG 24 hr mouth daily. tablet multivitamin tablet Take 1 tablet by 0 Active mouth daily. pramipexole (MIRAPEX) Take 0.75 mg by 0 Active 0.5 MG tablet mouth 3 (three) times daily. CALCIUM CARB/MAG Take by mouth. 0 Active OXIDE/VIT D3 (CALCIUM MAGNESIUM + D ORAL) BIOTIN ORAL Take by mouth 0 Active daily. CRESTOR 10 mg tablet TAKE 1 TABLET BY 90 tablet 1 12/26/2014 Active MOUTH EVERY DAY metoprolol (TOPROL-XL) TAKE 1 TABLET DAILY 90 tablet 3 01/25/2015 Active 25 MG 24 hr tablet citalopram (CELEXA) 40 TAKE 1 TABLET EVERY 90 tablet 1 02/04/2015 Active MG tablet DAY butalbital-acetaminoph Take one to 2 30 tablet 3 05/22/2015 Active en-caffeine (FIORICET, tablets every 6 ESGIC) 50-325-40 mg hours as needed for per tablet headache. linagliptin Take 1 tablet (5 mg 90 tablet 1 05/29/2015 Active (TRADJENTA) 5 mg Tab total) by mouth daily. triamterene-hydrochlor Take 1 tablet by 90 tablet 1 06/05/2015 Active othiazide (MAXZIDE-25) mouth daily. 37.5-25 mg per tablet blood sugar diagnostic 1 strip by 180 strip 3 07/20/2015 Active (ONE TOUCH) Strp Miscellaneous route 2 (two) times daily. thyroid, pork, 120 mg Take 1 tablet (120 90 tablet 3 09/14/2015 Active Tab mg total) by mouth daily. ranitidine (ZANTAC) Take 1 tablet (300 90 tablet 3 09/14/2015 Active 300 MG tablet mg total) by mouth nightly. Active Problems Problem Noted Date Iron deficiency 05/07/2014 Ulcerative colitis 06/22/2012 Overview: Dr. Hart for consideration Dr. Cleveland Mixon Impaired fasting glucose 06/22/2012 Hypothyroidism 06/22/2012 Overview: 09/2015 add 30mg of armour to her 120mg Cough 06/22/2012 Arthritis 06/22/2012 Hypertension 06/22/2012 Overview: Evaluation Dr. Landers 08/2014 echo with HTN heart disease, RBBB, left ventricular outflow gradient without obstruction, mild LVH, small pericardial effusion Hyperlipidemia with target LDL less than 100 06/22/2012 Overview: SNOMED/[place] [id number] GERD (gastroesophageal reflux disease) Restless leg syndrome Hyperhidrosis Insomnia Immunizations Name Dates Previously Given Next Due Influenza TIV (IM) 05/18/2011 Influenza Three-TIV PF 4+YRS 06/04/2015 Family History Medical History Relation Name Comments Cancer Father BLADDER Coronary artery disease Father Coronary artery disease Maternal Grandfather Drug abuse Maternal Grandfather Coronary artery disease Paternal Grandfather Relation Name Status Comments Father Maternal Grandfather Paternal Grandfather Social History Tobacco Use Types Packs/Day Years Used Date Former Smoker Quit: 08/28/1988 Tobacco Cessation: Counseling Given: No Alcohol Use Drinks/Week oz/Week Comments No Sex Assigned at Date Recorded Not on file Job Start Date Occupation Industry Not on file Not on file Not on file Travel History Travel Start Travel End No recent travel history available. Last Filed Vital Signs Not on file Plan of Treatment Health Maintenance Due Date Last Done Comments INFLUENZA VACCINE 05/28/2018 06/04/2015 Results Not on fileafter 10/21/2017 Insurance Payer Benefit Plan / Group Subscriber ID Type Phone Address [employer] - [employer] PPO [facility] NAP xxxxxxxxx PPO
--- OUTSIDE RECORDS SUMMARY | 2018-10-22 13:13 | XMS REPORT | Clinical Summary ---
:1950 Author Organization [facility] Address [address] [place] [address] Care Team Providers Name Role Phone Lindsey Epperson MD Primary Care Provider Allergies Active Allergy Reactions Severity Noted Date Comments Adhesive 12/10/2015 Ferumoxytol 12/10/2015 Penicillins 12/10/2015 Sulfa (Sulfonamide Antibiotics) 12/10/2015 Tetanus Toxoid Adsorbed 12/10/2015 Dulaglutide 01/02/2018 abdominal pain Liraglutide 09/04/2018 Stomach pain Medications Medication Sig Dispensed Refills Start Date End Date Status pramipexole Take 1 mg by 0 Active (MIRAPEX) 0.5 MG mouth 2 (two) tablet times a day. Takes 1 tab in the morning and 2 tabs at night montelukast Take 10 mg by 0 12/04/2015 Active (SINGULAIR) 10 mg mouth nightly. tablet multivitamin Take 1 tablet by 0 Active (THERAGRAN) tablet mouth daily. AMPHETAMINE-DEXTRO 30 mg every 0 01/13/2016 Active AMPHETAMINE 20 MG morning. tablet biotin 1 mg Take by mouth 0 Active capsule daily. cholecalciferol, Take 2,000 Units 0 Active vitamin D3, by mouth daily. (VITAMIN D3) 1,000 unit capsule calcium Take 1 tablet by 0 Active citrate-vitamin D3 mouth 2 (two) (CITRACAL+D) times a day. 315-200 mg-unit per tablet albuterol (PROAIR Inhale 2 puffs 0 Active HFA) 90 every 6 (six) mcg/actuation hours as needed inhaler for wheezing. lidocaine apply 1-2 grams 11 07/12/2016 Active (XYLOCAINE) 5 % TO affected ointment AREAS FOUR TIMES DAILY, apply in combination WITH topical PAIN cream (USE last) ONETOUCH ULTRA CHECK TWICE PER 3 07/09/2016 Active TEST strip test DAY strips ALPRAZolam (XANAX) Take 0.5 mg by 5 07/07/2016 Active 0.5 MG tablet mouth nightly. pantoprazole Take 40 mg by 0 Active (PROTONIX) 40 MG mouth daily. EC tablet buPROPion SR Take 150 mg by 5 03/27/2017 Active (WELLBUTRIN SR) mouth every 150 MG 12 hr morning. tablet HYDROcodone-acetam 0 06/18/2008 Active inophen (NORCO) 5-325 mg per tablet citalopram Take 1 tablet 90 tablet 1 08/18/2017 Active (CeleXA) 40 MG (40 mg total) by tablet mouth nightly. TAKE 1 TABLET EVERY DAY coenzyme Q10 200 Take 200 mg by 0 Active mg capsule mouth daily. B INFANTIS/B ANI/B Take by mouth. 0 Active WENDY/B BIFID (PROBIOTIC 4X ORAL) fluticasone 2 sprays by Each 0 Active (FLONASE) 50 Nare route mcg/actuation daily. nasal spray rosuvastatin TAKE 1 TABLET BY 90 tablet 3 11/14/2017 Active (CRESTOR) 10 MG MOUTH EVERY DAY tablet ranitidine Take 1 tablet 90 tablet 3 12/12/2017 Active (ZANTAC) 300 MG (300 mg total) tablet by mouth nightly. triamterene-hydroc TAKE 1 TABLET BY 90 tablet 3 12/15/2017 Active hlorothiazid MOUTH EVERY DAY (MAXZIDE-25) 37.5-25 mg per tablet levothyroxine Take 1 tablet 90 tablet 3 06/17/2018 Active (SYNTHROID, (150 mcg total) 9 LEVOXYL) 150 mcg by mouth every tablet morning. metoprolol TAKE 1 TABLET BY 90 tablet 3 07/23/2018 Active succinate XL MOUTH EVERY DAY (TOPROL-XL) 25 mg (DISCONTINUE 24 hr tablet 50MG) metFORMIN Take 1 tablet 60 tablet 11 09/14/2018 Active (GLUCOPHAGE) 500 (500 mg total) 0 mg tablet by mouth 2 (two) times a day with meals. linagliptin Take 1 tablet (5 30 tablet 5 09/17/2018 Active (TRADJENTA) 5 mg mg total) by tablet mouth daily with breakfast. acetaminophen-code Take 1 tablet by 36 tablet 0 10/15/2018 Active ine (TYLENOL WITH mouth every 6 9 CODEINE #3) 300-30 (six) hours as mg per tablet needed for moderate pain (and take with food.) for up to 30 doses. butalbital-acetami TAKE 1 TO 2 30 tablet 1 06/13/2016 Discontinued nophen-caff TABLETS EVERY 6 9 (FIORICET, ESGIC) HOURS NEEDED 50-325-40 mg per FOR HEADACHE tablet triamterene-hydroc TAKE 1 TABLET BY 90 tablet 3 12/08/2016 Discontinued hlorothiazid MOUTH EVERY DAY 8 (MAXZIDE-25) 37.5-25 mg per tablet busPIRone (BUSPAR) 1/2 tablet bid 30 tablet 11 04/12/2017 Discontinued 10 MG tablet prn 8 levothyroxine Take 1 tablet 30 tablet 11 05/13/2017 Discontinued (SYNTHROID) 150 (150 mcg total) 8 mcg tablet by mouth every morning. rosuvastatin TAKE 1 TABLET BY 90 tablet 1 05/29/2017 Discontinued (CRESTOR) 10 MG MOUTH EVERY DAY 8 tablet linagliptin Take 1 tablet (5 21 tablet 0 07/10/2017 Discontinued (TRADJENTA) 5 mg mg total) by 8 tablet mouth daily with breakfast. metoprolol TAKE 1 TABLET BY 90 tablet 3 07/25/2017 Discontinued succinate XL MOUTH EVERY DAY 8 (TOPROL-XL) 25 mg (DISCONTINUE 24 hr tablet 50MG) ranitidine Take 300 mg by 11 07/10/2017 Discontinued (ZANTAC) 300 MG mouth nightly. 8 tablet ipratropium 2 sprays into 0 Discontinued (ATROVENT) 0.06 % each nostril 4 9 nasal spray (four) times a day. mometasone-formote Inhale 2 puffs 2 0 Discontinued rol (DULERA 100) (two) times a 9 100-5 day. mcg/actuation inhaler gabapentin Take 1 tablet up 30 capsule 0 09/29/2017 Discontinued (NEURONTIN) 300 mg to 3 times daily 8 capsule for nerve pain. dulaglutide Inject 0.75 mg 4 Syringe 11 12/06/2017 Discontinued (TRULICITY) 0.75 under the skin 8 mg/0.5 mL pen once a week. injectorIndication s: Type 2 diabetes mellitus without complication, with long-term current use of insulin (HCC) ranitidine Take 1 tablet 90 tablet 3 12/12/2017 Discontinued (ZANTAC) 300 MG (300 mg total) 8 tablet by mouth nightly. exenatide Inject 2 mg 4 Syringe 5 01/04/2018 Discontinued microspheres under the skin 8 (BYDUREON BCISE) 2 once a week. mg/0.85 mL auto-injector glimepiride Take 1 tablet (2 30 tablet 0 01/23/2018 Discontinued (AMARYL) 2 MG mg total) by 8 tablet mouth daily before breakfast. glimepiride TAKE 1 TABLET BY 30 tablet 0 02/25/2018 Discontinued (AMARYL) 2 MG MOUTH EVERY DAY 8 tablet BEFORE BREAKFAST nitrofurantoin, Take 1 capsule 14 capsule 0 02/28/2018 macrocrystal-monoh (100 mg total) 8 ydrate, (MACROBID) by mouth 2 (two) 100 MG capsule times a day for 7 days. glimepiride TAKE 1 TABLET BY 30 tablet 11 03/28/2018 Discontinued (AMARYL) 2 MG MOUTH EVERY DAY 8 tablet BEFORE BREAKFAST levothyroxine TAKE 1 TABLET 30 tablet 11 04/02/2018 Discontinued (SYNTHROID, (150 MCG TOTAL) 8 LEVOXYL) 150 mcg BY MOUTH EVERY tablet MORNING. linagliptin Tradjenta 5 mg 0 Discontinued (TRADJENTA) 5 mg tablet 9 tablet butalbital-acetami Take 1 tab PO Q6 36 tablet 0 10/12/2018 Discontinued nophen-caff hours prn pain. 9 (FIORICET, ESGIC) Take with food. 50-325-40 mg per tablet Active Problems Problem Noted Date Parastomal hernia 09/20/2018 Pain of both hip joints 08/23/2018 History of EMG 12/09/2017 Overview: 11/2017 left carpal tunnel, And sensorineuropathy Dr Dutta Breakage of internal fixation device in bone 08/11/2017 H/O mammogram 07/18/2017 Overview: 06/2017 wnl Chronic low back pain 05/31/2017 Bursitis of hip 05/17/2017 Postsurgical arthrodesis [...] 06/22/2012 Overview: Overview: SNOMED/[place] [id number] Hypertension 06/22/2012 Overview: Overview: Evaluation Dr. Landers [...] Encounters Date Type Specialty Care Team Description 10/12/2018 Refill Orthopedic Aissatou Vera, Surgery RN 10/12/2018 Orders Only Orthopedic Anai Vargas Postsurgical arthrodesis status (Primary Dx); Surgery JAKOB Caban Chronic thoracic back pain, unspecified back pain laterality 09/14/2018 Telephone Internal Medicine Lindsey Epperson MD 09/14/2018 Orders Only Internal Medicine Lindsey Epperson MD 09/06/2018 Hospital Encounter Procedural Chaz Koch Claudication of both Cardiology MD Gorge lower extremities (HCC) 09/06/2018 Telephone Internal Medicine Lindsey Epperson MD 09/05/2018 Telephone Internal Medicine Lindsey Epperson Other specified hypothyroidism (Primary Dx); MD Tiesha Normocytic anemia 09/04/2018 Office Visit Internal Medicine Lindsey Epperson Gastroesophageal reflux disease without esophagitis (Primary Dx); MD Tiesha Type 2 diabetes mellitus without complication, with long-term current use of insulin (HCC); Essential hypertension; Chronic pain of right ankle; Borderline high cholesterol 08/23/2018 Office Visit Orthopedic Clifford Iverson Status post lumbar laminectomy (Primary Dx); Surgery MD Mee Nonallopathic lesion of hip region; Pain of both hip joints; Chronic low back pain, unspecified back pain laterality, with sciatica presence unspecified 08/23/2018 Orders Only Orthopedic Chaz Koch Arthritis of right ankle ( Primary Dx); Surgery MD Gorge Posterior tibial tendon dysfunction (PTTD) of right lower extremity; Claudication of both lower extremities (HCC) 08/08/2018 Telephone Internal Medicine Lindsey Epperson MD 08/01/2018 Office Visit General Surgery Armando Calero Parastomal hernia Lang Calhoun MD without obstruction or gangrene (Primary Dx) 07/23/2018 Refill Internal Medicine Lindsey Epperson MD 07/16/2018 Telephone Internal Medicine Lindsey Epperson MD 07/11/2018 Telephone Orthopedic Chaz Koch Surgery MD Gorge 07/05/2018 Office Visit Chaz Ga Arthritis of right ankle ( Primary Dx); Surgery MD Gorge Posterior tibial tendon dysfunction (PTTD) of right lower extremity 06/17/2018 Orders Only Internal Medicine Lindsey Epperson MD 06/08/2018 Orders Only Internal Medicine Paola Toney MA Screening mammogram, encounter for (Primary Dx) 04/27/2018 Office Visit Internal Medicine Lindsey Epperson Right foot pain (Primary Dx); MD Tiesha Type 2 diabetes mellitus without complication, with long-term current use of insulin; Essential hypertension 04/02/2018 Refill Internal Medicine Lindsey Epperson MD 03/28/2018 Refill Internal Medicine Lindsey Epperson MD 03/15/2018 Orders Only Orthopedic Gorge Capone, Velia of internal Surgery MA fixation device in bone, initial encounter (Primary Dx) 02/28/2018 Orders Only Internal Medicine Lindsey Epperson MD 02/27/2018 Telephone Internal Medicine Lindsey Epperson MD 02/25/2018 Refill Internal Medicine Lindsey Epperson MD 01/23/2018 Orders Only Internal Medicine Lindsey Epperson MD 01/09/2018 Hospital Encounter Radiology Aris Meehan MD 01/09/2018 Hospital Encounter Radiology Aris Meehan MD 01/09/2018 Hospital Encounter Radiology Aris Meehan MD 01/04/2018 Office Visit Orthopedic Jflljonas, Post-traumatic Surgery Efraín Pang MD osteoarthritis of right foot (Primary Dx) 01/03/2018 Orders Only Orthopedic Stein, Pelvic pain (Primary Surgery Emilie, MA Dx) 01/02/2018 Orders Only Internal Medicine Lindsey Epperson MD 01/01/2018 Telephone Internal Medicine Lindsey Epperson MD 12/15/2017 Refill Internal Medicine Lindsey Epperson MD 12/14/2017 Orders Only Orthopedic Pepe Elder Lipoma of right lower Surgery R., PA-C extremity (Primary Dx) 12/12/2017 Orders Only Internal Medicine Lindsey Epperson MD 12/12/2017 Refill Internal Medicine Paola Toney MA 12/06/2017 Office Visit Internal Medicine Lindsey Epperson Chronic left- sided low back pain without sciatica (Primary Dx); MD Tiesha Type 2 diabetes mellitus without complication, with long-term current use of insulin; Essential hypertension; Irritant contact dermatitis due to other agents; Obesity (BMI 30.0-34.9) 12/06/2017 Orders Only Orthopedic Gorge Capone, Post-traumatic Surgery MA osteoarthritis of right foot (Primary Dx) 12/04/2017 Documentation Orthopedic Lashay Zarate, Surgery MA 11/29/2017 Office Visit Orthopedic Aris Meehan Chronic bilateral low back pain without sciatica (Primary Dx); Wai Encnias MD Spondylosis of lumbar region without myelopathy or radiculopathy; Sagittal plane imbalance; Adjacent segment disease with kyphosis; Spinal stenosis of lumbar region with neurogenic claudication; Chronic low back pain without sciatica, unspecified back pain laterality; Degeneration of intervertebral disc of lumbar region 11/16/2017 Office Visit General Surgery Gorge Hart Peristomal dermatitis ( Primary Dx); MD Omid Parastomal hernia without obstruction or gangrene Chuyita Ortiz, IMMIGRATION PARALEGAL-C 11/14/2017 Refill Internal Medicine Lindsey Epperson MD 11/02/2017 Office Visit Orthopedic Maria E, Post-traumatic Surgery Efraín Pang MD osteoarthritis of right foot (Primary Dx) 10/27/2017 Telephone Orthopedic Wendy Hoover, Surgery MA after 10/21/2017 Immunizations Name Dates Previously Given Next Due FLUZONE HIGH-DOSE PF 05/24/2017 INFLUENZA QUAD 05/14/2018 Influenza Trivalent 05/18/2011 Influenza Whole 05/22/2016, 06/04/2015 [...] travel history available. Last Filed Vital Signs Vital Sign Reading Time Taken Blood Pressure 130/70 09/04/2018 11:24 AM ADAPTED PHYSICAL EDUCATION SPECIALIST Pulse 83 09/04/2018 10:52 AM ADAPTED PHYSICAL EDUCATION SPECIALIST Temperature 36.8 C (98.3 F) 09/04/2018 10:52 AM ADAPTED PHYSICAL EDUCATION SPECIALIST Respiratory Rate - - Oxygen Saturation 95% 09/04/2018 10:52 AM ADAPTED PHYSICAL EDUCATION SPECIALIST Inhaled Oxygen Concentration - - Weight 88.9 kg (196 lb) 09/04/2018 10:52 AM ADAPTED PHYSICAL EDUCATION SPECIALIST Height 160 cm (5' 3") 09/04/2018 10:52 AM ADAPTED PHYSICAL EDUCATION SPECIALIST Body Mass Index 34.72 09/04/2018 10:52 AM ADAPTED PHYSICAL EDUCATION SPECIALIST Plan of Treatment Health Maintenance Due Date Last Done Comments BREAST CANCER SCREENING 2001 SHINGLES VACCINES (#1) 2001 PNEUMOCOCCAL POLYSACCHARIDE VACCINE 2016 AGE 65 AND OVER DIABETIC FOOT EXAM 09/07/2017 09/07/2016, 09/07/2016 65+ PNEUMOCOCCAL VACCINE (2 of 2 - 07/10/2018 07/10/2017 PPSV23) DIABETIC RETINAL EYE EXAM 02/09/2020 02/08/2018, 08/24/2016 COLON CANCER SCREENING 08/22/2024 08/22/2014 INFLUENZA VACCINE Completed 05/14/2018, 05/24/2017, 05/22/2016, Additional history exists Procedures Procedure Name Priority Date/Time Associated Diagnosis Comments US DUPLEX ARTERIAL Routine 09/06/2018 3:15 Claudication of both Results for this LOWER EXTREMITY PM ADAPTED PHYSICAL EDUCATION SPECIALIST lower extremities procedure are in BILATERAL (HCC) the results section. AK INJECT TRIGGER Routine 08/23/2018 11:00 Status post lumbar Results for this POINT, 1 OR 2 AM ADAPTED PHYSICAL EDUCATION SPECIALIST laminectomy procedure are in the results section. XR ANKLE 3+ VW Routine 07/05/2018 3:51 Post-traumatic Results for this RIGHT PM ADAPTED PHYSICAL EDUCATION SPECIALIST arthritis of ankle, procedure are in right the results section. MRI ABD/PELVIC Routine 01/02/2018 5:00 Results for this EXTERNAL STUDY PM CDT procedure are in the results section. MRI SPINE EXTERNAL Routine 01/02/2018 4:35 Results for this STUDY PM CDT procedure are in the results section. MRI SPINE EXTERNAL Routine 01/02/2018 4:19 Results for this STUDY PM CDT procedure are in the results section. after 10/21/2017 Results Us duplex arterial lower extremity (09/06/2018 3:15 PM ADAPTED PHYSICAL EDUCATION SPECIALIST) Narrative Performed At [facility] Lower Extremity Arterial Duplex Report [address] [address], [place] [address] Pat.Name:JANNIE MCKNIGHT.ID:[id number] .Date: 09/06/2018 Refer.MD:CHAZ KOCH MD Exam Time: 1:30:00 PMStudy Type:LE Arterial Height:63inWeight: 200lb BSA: 1.94 m2 DOBAge:1949,68Y Sex: FEMALESonogrphr: Jigna Tellez RVT Pat. Stat.:OutpatientTapeVol: LAWRENCE, CPT - 4: 10902, [id number] Event ID:[id number] Order ID:[id number] Reason for Study:Cold and discoloration of toes. History of diabetes, hyperlipidemia. Procedures:Ankle/brachial pressures, Colorflow, Digit pressures, Grayscale/2D, PPG waveform tracing, Pulsed wave Doppler SUMMARY: DUPLEX SCAN OBSERVATIONS: RIGHT: Normal colorflow and Doppler signals noted in the common femoral, femoral, profunda, popliteal, posterior tibial, peroneal, and anterior tibial arteries. LEFT: Normal colorflow and Doppler signals noted in the common femoral, femoral, profunda, popliteal, posterior tibial, peroneal, and anterior tibial arteries. ANKLE/BRACHIAL INDEX: RIGHTLEFT Brachial Artery Pressure 123 amYd188 mmHg DP133 [id number] PT155 dbDw570 mmHg KARTHIKEYAN DP0.961.00 KARTHIKEYAN PT1.121.01 TOE/BRACHIAL INDEX: Great Toe57 mmHg59 mmHg TBI0.41 0.43 PRELIMINARY FINDINGS: 1. No significant stenosis or occlusion seen in the visualized arteries, bilaterally. 2. Ankle/brachial indices fall into the normal range, bilaterally. 3. Toe/brachial indices fall into the mild range, bilaterally. PHYSICIAN INTERPRETATION: Bilateral lower extremity arterial duplexexam demonstrates no evidence of significant arterial occlusive disease. The KARTHIKEYAN'sare within normal range. Toe/brachial indices fall into the mild range, bilaterally. Doppler Waveforms: RightLeft Common Fem Triphasic Triphasic Superficial FemTriphasicTriphasic PoplitealTriphasic Triphasic Posterior Tibial TriphasicBiphasic Anterior TibialTriphasicBiphasic MEASUREMENTS: DOPPLER Left SPEEDY Dist SPEEDY Dist PSV69.2 cm/s Left SPEEDY Mid SPEEDY Mid PSV 65.1 cm/s Left SPEEDY Prox SPEEDY Prox PSV51 cm/sATA Prox PSV51 cm/s Left Pop Dist Pop Dist PSV56.9 cm/s Left Pop Prox Pop Prox PSV59.8 cm/sPop Prox PSV56.9 cm/ s Left GROMMET MACHINE OPERATOR Dist GROMMET MACHINE OPERATOR Dist PSV87.2 cm/s Left GROMMET MACHINE OPERATOR Mid GROMMET MACHINE OPERATOR Mid PSV 82.5 cm/s Left GROMMET MACHINE OPERATOR Prox GROMMET MACHINE OPERATOR Prox PSV63.9 cm/s Left Peroneal Dist Peroneal Dist P28.3 cm/s Left Peroneal Mid Peroneal Mid PS66.8 cm/s Left Peroneal Prox Peroneal Prox P44 cm/s Left SFA Dist SFA Dist PSV56.9 cm/s Left SFA Mid SFA Mid LIO256 cm/s Left SFA Prox SFA Prox PSV 136 cm/s Left Profunda Profunda PSV 128 cm/s Right SPEEDY Dist SPEEDY Dist PSV65.1 cm/s Right SPEEDY Mid SPEEDY Mid PSV 65.7 cm/s Right GROMMET MACHINE OPERATOR Prox GROMMET MACHINE OPERATOR Prox PSV66.8 cm/sPTA Prox PSV66.8 cm/ s Right Pop Dist Pop Dist PSV 127 cm/s Right Pop Prox Pop Prox PSV71.5 cm/s Right GROMMET MACHINE OPERATOR Dist GROMMET MACHINE OPERATOR Dist PSV89.6 cm/s Right GROMMET MACHINE OPERATOR Mid GROMMET MACHINE OPERATOR Mid PSV 82.5 cm/s Right Peroneal Dist Peroneal Dist P61.6 cm/s Right Peroneal Mid Peroneal Mid PS65.2 cm/s Right Peroneal Prox Peroneal Prox P 100 cm/s Right SFA Dist SFA Dist PSV78.6 cm/s Right SFA Mid SFA Mid PSV 99 cm/s Right SFA Prox SFA Prox PSV91.9 cm/s Right Profunda Profunda PSV58.9 cm/s Right HAND SINGER Dist HAND SINGER Dist PSV81.7 cm/s Left HAND SINGER Dist HAND SINGER Dist PSV 153 cm/s Right GROMMET MACHINE OPERATOR Distal GROMMET MACHINE OPERATOR Distal PSV89.6 cm/s Left GROMMET MACHINE OPERATOR Distal GROMMET MACHINE OPERATOR Distal PSV87.2 cm/s Right SPEEDY Prox SPEEDY Prox PSV65.1 cm/s Right SPEEDY Distal SPEEDY Distal PSV65.1 cm/s Left SPEEDY Distal SPEEDY Distal PSV69.2 cm/s Signed 09/07/2018 06:38 AM Carlos Eduardo Martin MD, RPVI Procedure Note Interface, Radiology Results In - 09/07/2018 6:39 AM ADAPTED PHYSICAL EDUCATION SPECIALIST [facility] Lower Extremity Arterial Duplex Report [address] [place] [address] Pat.Name: JANNIE MCKNIGHT Pat.ID: [id number] .Date: 09/06/2018 Refer.MD: CHAZ KOCH MD Exam Time: 1:30:00 PM Study Type:LE Arterial Height: 63in Weight: 200lb BSA: 1.94 m2 Age: 12 1950,68Y Sex: FEMALE Sonogrphr: Jigna Tellez RVT Pat. Stat.:Outpatient Tape Vol: JJ, CPT - 4: 90519, [id number] Echo Event ID:[id number] Order ID: [id number] Reason for Study:Cold and discoloration of toes. History of diabetes, hyperlipidemia. Procedures:Ankle/brachial pressures, Colorflow, Digit pressures, Grayscale/2D, PPG waveform tracing, Pulsed wave Doppler SUMMARY: DUPLEX SCAN OBSERVATIONS: RIGHT: Normal colorflow and Doppler signals noted in the common femoral, femoral, profunda, popliteal, posterior tibial, peroneal, and anterior tibial arteries. LEFT: Normal colorflow and Doppler signals noted in the common femoral, femoral, profunda, popliteal, posterior tibial, peroneal, and anterior tibial arteries. ANKLE/BRACHIAL INDEX: RIGHT LEFT Brachial Artery Pressure 123 mmHg 138 mmHg DP 133 mmHg 138mmHg PT 155 mmHg 139 mmHg KARTHIKEYAN DP 0.96 1.00 KARTHIKEYAN PT 1.12 1.01 TOE/BRACHIAL INDEX: Great Toe 57 mmHg 59 mmHg TBI 0.41 0.43 PRELIMINARY FINDINGS: 1. No significant stenosis or occlusion seen in the visualized arteries, bilaterally. 2. Ankle/brachial indices fall into the normal range, bilaterally. 3. Toe/brachial indices fall into the mild range, bilaterally. PHYSICIAN INTERPRETATION: Bilateral lower extremity arterial duplex exam demonstrates no evidence of significant arterial occlusive disease. The KARTHIKEYAN's are within normal range. Toe/brachial indices fall into the mild range, bilaterally. Doppler Waveforms: Right Left Common Fem Triphasic Triphasic Superficial Fem Triphasic Triphasic Popliteal Triphasic Triphasic Posterior Tibial Triphasic Biphasic Anterior Tibial Triphasic Biphasic MEASUREMENTS: DOPPLER Left SPEEDY Dist SPEEDY Dist PSV 69.2 cm/s Left SPEEDY Mid SPEEDY Mid PSV 65.1 cm/s Left SPEEDY Prox SPEEDY Prox PSV 51 cm/s SPEEDY Prox PSV 51 cm/s Left Pop Dist Pop Dist PSV 56.9 cm/s Left Pop Prox Pop Prox PSV 59.8 cm/s Pop Prox PSV 56.9 cm/s Left GROMMET MACHINE OPERATOR Dist GROMMET MACHINE OPERATOR Dist PSV 87.2 cm/s Left GROMMET MACHINE OPERATOR Mid GROMMET MACHINE OPERATOR Mid PSV 82.5 cm/s Left GROMMET MACHINE OPERATOR Prox GROMMET MACHINE OPERATOR Prox PSV 63.9 cm/s Left Peroneal Dist Peroneal Dist P 28.3 cm/s Left Peroneal Mid Peroneal Mid PS 66.8 cm/s Left Peroneal Prox Peroneal Prox P 44 cm/s Left SFA Dist SFA Dist PSV 56.9 cm/s Left SFA Mid SFA Mid PSV 119 cm/s Left SFA Prox SFA Prox PSV 136 cm/s Left Profunda Profunda PSV 128 cm/s Right SPEEDY Dist SPEEDY Dist PSV 65.1 cm/s Right SPEEDY Mid SPEEDY Mid PSV 65.7 cm/s Right GROMMET MACHINE OPERATOR Prox GROMMET MACHINE OPERATOR Prox PSV 66.8 cm/s GROMMET MACHINE OPERATOR Prox PSV 66.8 cm/s Right Pop Dist Pop Dist PSV 127 cm/s Right Pop Prox Pop Prox PSV 71.5 cm/s Right GROMMET MACHINE OPERATOR Dist GROMMET MACHINE OPERATOR Dist PSV 89.6 cm/s Right GROMMET MACHINE OPERATOR Mid GROMMET MACHINE OPERATOR Mid PSV 82.5 cm/s Right Peroneal Dist Peroneal Dist P 61.6 cm/s Right Peroneal Mid Peroneal Mid PS 65.2 cm/s Right Peroneal Prox Peroneal Prox P 100 cm/s Right SFA Dist SFA Dist PSV 78.6 cm/s Right SFA Mid SFA Mid PSV 99 cm/s Right SFA Prox SFA Prox PSV 91.9 cm/s Right Profunda Profunda PSV 58.9 cm/s Right HAND SINGER Dist HAND SINGER Dist PSV 81.7 cm/s Left HAND SINGER Dist HAND SINGER Dist PSV 153 cm/s Right GROMMET MACHINE OPERATOR Distal GROMMET MACHINE OPERATOR Distal PSV 89.6 cm/s Left GROMMET MACHINE OPERATOR Distal GROMMET MACHINE OPERATOR Distal PSV 87.2 cm/s Right SPEEDY Prox SPEEDY Prox PSV 65.1 cm/s Right SPEEDY Distal SPEEDY Distal PSV 65.1 cm/s Left SPEEDY Distal SPEEDY Distal PSV 69.2 cm/s Signed 09/07/2018 06:38 AM Carlos Eduardo Martin MD, RPVI Performing Organization Address City/State/Zipcode Phone Number [facility] [address] [place] [address] 1 or 2 Trigger Point Injection: R sacral, left (08/23/2018 11:00 AM ADAPTED PHYSICAL EDUCATION SPECIALIST) Narrative Performed At Clifford Iverson MD 08/23/20182:00 PM 1 or 2 Trigger Point Injection: R sacral, left Date/Time: 08/23/2018 1:54 PM Performed by: Clifford Iverson MD Authorized by: Clifford Iverson MD Consent: Consent obtained:Verbal Consent given by:Patient Alternatives discussed:No treatment Indications: Indications:Pain relief Location: Therapeutic Trigger Point Injection:Single/multiple trigger point(s): 1-2 muscle groups Location: back and hip Back location injected:R sacral Hip injected:Left Right side: Right Sacral Medications administered: 6 mg betamethasone acetate & sodium phosphate 6 mg/mL; 2 mL bupivacaine 0.25 % (2.5 mg/mL); 2 mL lidocaine 10 mg/mL (1 %) Left side: Left hip medications administered: 6 mg betamethasone acetate & sodium phosphate 6 mg/mL; 1 mL bupivacaine 0.25 % (2.5 mg/mL); 2 mL lidocaine 10 mg/mL (1 %) Pre-procedure details: Neurovascular status: intact Skin preparation:Alcohol Procedure details: Topical anesthetic:Ethyl chloride Syringe type:Normal syringe Needle gauge:22 G Post-procedure details: Patient tolerance of procedure:Tolerated well, no immediate complications Comments: The point of maximum tenderness near the posterior superior iliac spine on the right is located by palpation and then injected.On the left hip, the area around the gluteus insertion to the greater trochanter is similarly located as of maximum tenderness by palpation and injected. There were no consequences to either injection. XR Ankle 3+ Vw Right (07/05/2018 3:51 PM ADAPTED PHYSICAL EDUCATION SPECIALIST) Narrative Performed At 3 weightbearing views of the right ankle obtained today demonstrate valgus HM RADIANT tibiotalar arthritis with narrowing of the lateral tibiotalar joint space and valgus talar tilt.There is evidence of well-healed triple arthrodesis and first TMT fusion with persistent hindfoot valgus and arch collapse.Previous foot radiographs demonstrate persistent forefoot abduction. Performing Organization Address [facility] Phone Number [facility] [address] [place] [address] MRI Abd/Pelvic External Study (01/02/2018 5:00 PM CDT) Narrative Performed At This exam was not acquired at a [facility] facility and has not been [facility] interpreted by a [facility] Provider.The exam was imported into our imaging system for comparisons purposes. Performing Organization Address [facility] Phone Number [facility] [address] [place] [address] MRI Spine External Study (01/02/2018 4:35 PM CDT)Only the most recent of2 resultswithin the time period is included. Narrative Performed At This exam was not acquired at a [facility] facility and has not been [facility] interpreted by a [facility] Provider.The exam was imported into our imaging system for comparisons purposes. Performing Organization Address City/State/Zipcode Phone Number [employer] [facility] [address] [place] [address] after 10/21/2017 Insurance Payer Benefit Plan / Group Subscriber ID Type Phone Address AETNA MEDICARE AETNA MEDICARE HMO/PPO [facility] xxxxxxxx HMO Advance Directives Patient has advance care planning documents on file. For more information, please contact:Travis Rich[address] [place] [address]
[2018-10-22] MEDS ORDERED: HEPARIN 500 UNIT/5 ML SYR IV ONE (13:54)
== END 2018-10-22 14:15 | disposition home or self-care (01) ==
LOC: DS 13:06
PROVIDERS: ATTEND Internal Medicine Gastroenterology
DX: Z45.2 Encounter for adjustment and management of vascular access device (principal); K51.90 Ulcerative colitis, unspecified, without complications
CPT/HCPCS: 96523; J1642

== ENCOUNTER 2019-04-03 11:04 | Day surgery (SDC) | payer OTHER ==
[2019-04-03] MEDS ORDERED: HEPARIN 500 UNIT/5 ML SYR IV ONE (11:09)
--- OUTSIDE RECORDS SUMMARY | 2019-04-03 11:09 | XMS REPORT | Clinical Summary ---
:1950 Author Organization [facility] Address [address] [place] [address] Care Team Providers Name Role Phone Lindsey [...] 50 Nare route mcg/actuation daily. nasal spray metoprolol TAKE 1 TABLET BY 90 tablet 3 07/23/2018 Active succinate XL MOUTH EVERY DAY (TOPROL-XL) 25 mg (DISCONTINUE 24 hr tablet 50MG) rosuvastatin TAKE 1 TABLET BY 90 tablet 3 11/07/2018 Active (CRESTOR) 10 MG MOUTH EVERY DAY tablet linagliptin Take 1 tablet (5 90 tablet 3 11/28/2018 Active (TRADJENTA) 5 mg mg total) by tabletIndications: mouth daily with Type 2 diabetes breakfast. mellitus without complication, with long-term current use of insulin ([facility]) triamterene-hydroc TAKE 1 TABLET BY 90 tablet 3 12/24/2018 Active hlorothiazid MOUTH EVERY DAY (MAXZIDE-25) 37.5-25 mg per tablet metFORMIN Take 1 tablet 180 tablet 3 01/02/2019 Active (GLUCOPHAGE) 500 (500 mg total) 0 mg by mouth 2 (two) tabletIndications: times a day with Type 2 diabetes meals. mellitus without complication, with long-term current use of insulin ([facility]) ranitidine Take 1 tablet 90 tablet 3 01/02/2019 Active (ZANTAC) 300 MG (300 mg total) tablet by mouth nightly. levothyroxine Take 137 mcg by 30 tablet 11 01/13/2019 Active (SYNTHROID) 137 mouth daily. 0 mcg tablet potassium chloride Take 1 tablet 30 tablet 11 01/13/2019 Active (K-DUR,KLOR-CON) (10 mEq total) 0 10 MEQ CR tablet by mouth daily. butalbital-acetami TAKE 1 TO 2 30 tablet 1 06/13/2016 Discontinued nophen-caff TABLETS EVERY 6 9 (FIORICET, ESGIC) HOURS NEEDED 50-325-40 mg per FOR HEADACHE tablet busPIRone (BUSPAR) 1/2 tablet bid 30 tablet 11 04/12/2017 Discontinued 10 MG tablet prn 8 levothyroxine Take 1 tablet 30 tablet 11 05/13/2017 Discontinued (SYNTHROID) 150 (150 mcg total) 8 mcg tablet by mouth every morning. metoprolol TAKE 1 TABLET BY 90 tablet 3 07/25/2017 Discontinued succinate XL MOUTH EVERY DAY 8 (TOPROL-XL) 25 mg (DISCONTINUE 24 hr tablet 50MG) ipratropium 2 sprays into 0 Discontinued (ATROVENT) 0.06 % each nostril 4 9 nasal spray (four) times a day. mometasone-formote Inhale 2 puffs 2 0 Discontinued rol (DULERA 100) (two) times a 9 100-5 day. mcg/actuation inhaler rosuvastatin TAKE 1 TABLET BY 90 tablet 3 11/14/2017 Discontinued (CRESTOR) 10 MG MOUTH EVERY DAY 9 tablet ranitidine Take 1 tablet 90 tablet 3 12/12/2017 Discontinued (ZANTAC) 300 MG (300 mg total) 9 tablet by mouth nightly. triamterene-hydroc TAKE 1 TABLET BY 90 tablet 3 12/15/2017 Discontinued hlorothiazid MOUTH EVERY DAY 9 (MAXZIDE-25) 37.5-25 mg per tablet exenatide Inject 2 mg 4 Syringe 5 01/04/2018 Discontinued microspheres under the skin 8 (BYDUREON BCISE) 2 once a week. mg/0.85 mL auto-injector glimepiride TAKE 1 TABLET BY 30 tablet 11 03/28/2018 Discontinued (AMARYL) 2 MG MOUTH EVERY DAY 8 tablet BEFORE BREAKFAST levothyroxine TAKE 1 TABLET 30 tablet 11 04/02/2018 Discontinued (SYNTHROID, (150 MCG TOTAL) 8 LEVOXYL) 150 mcg BY MOUTH EVERY tablet MORNING. levothyroxine Take 1 tablet 90 tablet 3 06/17/2018 Discontinued (SYNTHROID, (150 mcg total) 9 LEVOXYL) 150 mcg by mouth every tablet morning. linagliptin Tradjenta 5 mg 0 Discontinued (TRADJENTA) 5 mg tablet 9 tablet metFORMIN Take 1 tablet 60 tablet 11 09/14/2018 Discontinued (GLUCOPHAGE) 500 (500 mg total) 9 mg tablet by mouth 2 (two) times a day with meals. linagliptin Take 1 tablet (5 30 tablet 5 09/17/2018 Discontinued (TRADJENTA) 5 mg mg total) by 9 tablet mouth daily with breakfast. butalbital-acetami Take 1 tab PO Q6 36 tablet 0 10/12/2018 Discontinued nophen-caff hours prn pain. 9 (FIORICET, ESGIC) Take with food. 50-325-40 mg per tablet acetaminophen-code Take 1 tablet by 36 tablet 0 10/15/2018 ine (TYLENOL WITH mouth every 6 9 CODEINE #3) 300-30 (six) hours as mg per tablet needed for moderate pain (and take with food.) for up to 30 doses. HYDROcodone-acetam 1 po tid prn 60 tablet 0 11/01/2018 inophen (NORCO) pain 9 5-325 mg per tablet metFORMIN Take 1 tablet 60 tablet 11 11/28/2018 Discontinued (GLUCOPHAGE) 500 (500 mg total) 9 mg by mouth 2 (two) tabletIndications: times a day with Type 2 diabetes meals. mellitus without complication, with long-term current use of insulin (HCC) moxifloxacin Administer 1 1.05 mL 0 01/14/2019 (VIGAMOX) 0.5 % drop to both 9 ophthalmic eyes 3 (three) solution times a day for 7 days. Active Problems Problem Noted Date Parastomal hernia 09/20/2018 Pain of both hip joints 08/23/2018 History of EMG 12/09/2017 Overview: 11/2017 left carpal tunnel, And sensorineuropathy Dr Dutta Breakage of internal fixation device in bone 08/11/2017 H/O mammogram 07/18/2017 Overview: 06/2017 wnl Low back pain radiating to left leg 05/31/2017 Bursitis of hip 05/17/2017 Postsurgical arthrodesis [...] is wnl 01/2018 Dr Mccloud is wnl 02/2019 wnl no DM changes Dr Mccloud Hx of bone density study 06/26/2016 Overview: 05/2016 L hip -0.7 and spine not done Dr Lombardi Gastroesophageal reflux disease 12/10/2015 Hyperhidrosis 12/10/2015 Insomnia 12/10/2015 Restless legs syndrome 12/10/2015 Iron deficiency 05/07/2014 Arthritis 06/22/2012 Cough 06/22/2012 HLD (hyperlipidemia) 06/22/2012 Overview: Overview: SNOMED/[place] [id number] Hypertension 06/22/2012 Overview: Overview: Evaluation Dr. Landers [...] Encounters Date Type Specialty Care Team Description 02/27/2019 Orders Only Orthopedic Surgery Pepe Elder Paraspinal mass R.JAKOB (Primary Dx) 02/04/2019 Office Visit Orthopedic Surgery Haven Chavis Osteopenia, unspecified JAKOB Martell location (Primary Dx) 01/14/2019 Orders Only Internal Medicine Lindsey Epperson MD 01/13/2019 Orders Only Internal Medicine Lindsey Epperson MD 01/11/2019 Telephone Internal Medicine Lindsey Epperson MD 01/02/2019 Refill Internal Medicine Paola Toney MA Type 2 diabetes mellitus without complication, with long-term current use of insulin (HCC) 12/31/2018 Telephone Internal Medicine Payton Cleaning MA 12/27/2018 Orders Only Internal Medicine Lindsey Epperson Muscle pain ( Primary B., Dx) 12/26/2018 Office Visit Orthopedic Surgery Aris Meehan Chronic low back pain without sciatica, unspecified back pain laterality (Primary Dx); MD Huang Degeneration of intervertebral disc of lumbar region; Degenerative scoliosis in adult patient; Lumbar stenosis with neurogenic claudication 12/23/2018 Refill Internal Medicine Lindsey Epperson MD 11/28/2018 Office Visit Internal Medicine Lindsey Epperson Type 2 diabetes mellitus without complication, with long-term current use of insulin (HCC) ( Primary Dx); MD Tiesha Essential hypertension; Borderline high cholesterol; Other fatigue; Other specified hypothyroidism 11/07/2018 Refill Internal Medicine Lindsey Epperson MD 11/01/2018 Hospital Radiology Clifford Iverson Canceled (Schedule Encounter MD Mee Order Error) 11/01/2018 Hospital Radiology Clifford Iverson MD 11/01/2018 Hospital Radiology Clifford Iverson Encounter MD Mee 11/01/2018 Hospital Radiology Clifford Iverson Encounter MD Mee 11/01/2018 Hospital Radiology Clifford Iverson Encounter MD Mee 11/01/2018 Office Visit Orthopedic Surgery Clifford Iverson Status post lumbar laminectomy (Primary Dx); MD Mee Postsurgical arthrodesis status; Low back pain radiating to left leg 11/01/2018 Office Visit Orthopedic Surgery Chaz Koch Posterior tibialis MD Gorge tendon insufficiency (Primary Dx) 10/31/2018 Orders Only Orthopedic Surgery Wyman Stefanie, Postsurgical POST SPLITTER II arthrodesis status 10/29/2018 Orders Only Access Clifford Iverson MD 10/22/2018 Orders Only Orthopedic Surgery Anai Vargas Encounter for JAKOB Caban preprocedural laboratory examination (Primary Dx) 10/12/2018 Refill Orthopedic Surgery Aissatou Vera RN 10/12/2018 Orders Only Orthopedic Surgery Anai Vargas Postsurgical arthrodesis status (Primary Dx); JAKOB Caban Chronic thoracic back pain, unspecified back pain laterality 09/14/2018 Telephone Internal Medicine Lindsey Epperson MD 09/14/2018 Orders Only Internal Medicine Lindsey Epperson MD 09/06/2018 Hospital Procedural Chaz Koch Claudication of both Encounter Cardiology MD Gorge lower extremities (HCC) 09/06/2018 [...] high cholesterol 08/23/2018 Office Visit Orthopedic Clifford Cazares Status post lumbar laminectomy (Primary Dx); MD Mee Nonallopathic lesion of hip region; Pain of both hip joints; Chronic low back pain, unspecified back pain laterality, with sciatica presence unspecified 08/23/2018 Orders Only Orthopedic Chaz Pina Arthritis of right ankle (Primary Dx); MD Gorge Posterior tibial tendon dysfunction (PTTD) of right lower extremity; Claudication of both lower extremities (HCC) 08/08/2018 Telephone Internal Medicine Lindsey Epperson MD 08/01/2018 Office Visit General Surgery Lefave, Armando Parastomal hernia Lang Calhoun MD without obstruction or gangrene (Primary Dx) 07/23/2018 Refill Internal Medicine Lindsey Epperson MD 07/16/2018 Telephone Internal Medicine Lindsey Epperson MD 07/11/2018 Telephone Orthopedic Surgery Chaz Kcoh MD 07/05/2018 Office Visit Orthopedic Surgery Chaz Koch Arthritis of right ankle (Primary Dx); MD Gorge Posterior tibial tendon dysfunction (PTTD) [...] 04/02/2018 Refill Internal Medicine Lindsey Epperson MD after 04/02/2018 Immunizations Name Dates Previously Given Next Due [...] Vital Sign Reading Time Taken Blood Pressure 124/78 02/04/2019 11:13 AM CDT Pulse 79 02/04/2019 11:13 AM CDT Temperature 36.6 C (97.9 F) 02/04/2019 11:13 AM CDT Respiratory Rate - - Oxygen Saturation 96% 11/28/2018 11:28 AM CDT Inhaled Oxygen Concentration - - Weight 80.3 kg (177 lb) 02/04/2019 11:13 AM CDT Height 162.6 cm (5' 4") 02/04/2019 11:13 AM CDT Body Mass Index 30.38 02/04/2019 11:13 AM CDT Plan of Treatment Health Maintenance Due Date Last Done Comments BREAST CANCER SCREENING 2001 SHINGLES VACCINES (#1) 2001 DIABETIC FOOT EXAM 09/07/2017 09/07/2016, 09/07/2016 65+ PNEUMOCOCCAL VACCINE (2 of 2 - 07/10/2018 07/10/2017 PPSV23) INFLUENZA VACCINE 03/28/2019 05/14/2018, 05/24/2017, 05/22/2016, Additional history exists DIABETIC RETINAL EYE EXAM 03/15/2021 03/15/2019, 02/08/2018, 08/24/2016 COLONOSCOPY SCREENING 08/22/2024 08/22/2014 Procedures Procedure Name Priority Date/Time Associated Diagnosis Comments XR SPINE SCOLIOSIS Routine 12/26/2018 12:54 Chronic low back pain Results for this 4-5VIEWS PM CDT without sciatica, procedure are in unspecified back pain the results laterality section. Degeneration of intervertebral disc of lumbar region Degenerative scoliosis in adult patient Lumbar stenosis with neurogenic claudication MRI LUMBAR SPINE WO Routine 10/31/2018 CONTRAST [id number] Routine 10/29/2018 MISCELLANSOUS IMAGING Routine 10/29/2018 RESULT MRI SPINE EXTERNAL Routine 10/26/2018 5:42 Results for this STUDY PM GRAPHIC ENGINEER procedure are in the results section. MRI SPINE EXTERNAL Routine 10/26/2018 5:22 Results for this STUDY PM GRAPHIC ENGINEER procedure are in the results section. US DUPLEX ARTERIAL Routine 09/06/2018 3:15 Claudication of both Results for this LOWER EXTREMITY PM GRAPHIC ENGINEER lower extremities procedure are in BILATERAL (HCC) the results section. OH INJECT TRIGGER Routine 08/23/2018 11:00 Status post lumbar Results for this POINT, 1 OR 2 AM GRAPHIC ENGINEER laminectomy procedure are in the results section. XR ANKLE 3+ VW RIGHT Routine 07/05/2018 3:51 Post-traumatic Results for this PM GRAPHIC ENGINEER arthritis of ankle, procedure are in right the results section. after 04/02/2018 Results XR Spine Scoliosis 4-5 Views (12/26/2018 12:54 PM CDT) Specimen Narrative Performed At L3-S1 posterior spinal fusion instrumentation is noted on AP lateral [facility] scoliosis x-ray with adjacent segment degenerative scoliosis with positive sagittal plane deformity and significant osteophyte formation throughout the cervical thoracic and lumbar spine.No evidence for fractures or other acute abnormalities are seen. Performing Organization Address [facility] Phone Number [facility] [address] [place] [address] MRI Lumbar Spine Wo Contrast (10/31/2018) Narrative Performed At Miscellaneous Imaging Result (10/29/2018) Specimen Blood Miscellaneous Lab Result (10/29/2018) Specimen Blood Narrative Performed At MRI Spine External Study (10/26/2018 5:42 PM GRAPHIC ENGINEER)Only the most recent of2 resultswithin the time period is included. Specimen Narrative Performed At This exam was not acquired at a [facility] facility and has not been [facility] interpreted by a [facility] Provider.The exam was imported into our imaging system for comparisons purposes. Performing Organization Address [facility] Phone Number [facility] [address] [place] [address] Us duplex arterial lower extremity (09/06/2018 3:15 PM GRAPHIC ENGINEER) Specimen Narrative Performed At [facility] Lower Extremity Arterial Duplex Report [address] [place] [address] Pat.Name:JANNIE MCKNIGHT.ID:[id number] .Date: 09/06/2018 Refer.MD:CHAZ KOCH MD Exam Time: 1:30:00 PMStudy Type:LE Arterial Height:63inWeight: 200lb BSA: 1.94 m2 DOBAge:1949,68Y Sex: FEMALESonogrphr: Jigna Tellez RVT Pat. Stat.:OutpatientTapeVol: LAWRENCE, CPT - 4: 50778, [id number] Event ID:[id number] Order ID:[id number] Reason for Study:Cold and discoloration of toes. [...] ANKLE/BRACHIAL INDEX: RIGHTLEFT Brachial Artery Pressure 123 rfVk110 mmHg DP133 [id number] PT155 joHg169 mmHg KARTHIKEYAN DP0.961.00 KARTHIKEYAN PT1.121.01 TOE/BRACHIAL INDEX: [...] PSV59.8 cm/sPop Prox PSV56.9 cm/ s Left COLOR MAKER Dist COLOR MAKER Dist PSV87.2 cm/s Left COLOR MAKER Mid COLOR MAKER Mid PSV 82.5 cm/s Left COLOR MAKER Prox COLOR MAKER Prox PSV63.9 cm/s Left Peroneal Dist Peroneal Dist P28.3 cm/s Left Peroneal Mid Peroneal Mid PS66.8 cm/s Left Peroneal Prox Peroneal Prox P44 cm/s Left SFA Dist SFA Dist PSV56.9 cm/s Left SFA Mid SFA Mid GSU771 cm/s Left SFA Prox SFA Prox PSV 136 cm/s Left Profunda Profunda PSV 128 cm/s Right SPEEDY Dist SPEEDY Dist PSV65.1 cm/s Right SPEEDY Mid SPEEDY Mid PSV 65.7 cm/s Right COLOR MAKER Prox COLOR MAKER Prox PSV66.8 cm/sPTA Prox PSV66.8 cm/ s Right Pop Dist Pop Dist PSV 127 cm/s Right Pop Prox Pop Prox PSV71.5 cm/s Right COLOR MAKER Dist COLOR MAKER Dist PSV89.6 cm/s Right COLOR MAKER Mid COLOR MAKER Mid PSV 82.5 cm/s Right Peroneal Dist Peroneal Dist P61.6 cm/s Right Peroneal Mid Peroneal Mid PS65.2 cm/s Right Peroneal Prox Peroneal Prox P 100 cm/s Right SFA Dist SFA Dist PSV78.6 cm/s Right SFA Mid SFA Mid PSV 99 cm/s Right SFA Prox SFA Prox PSV91.9 cm/s Right Profunda Profunda PSV58.9 cm/s Right PIGEON FANCIER Dist PIGEON FANCIER Dist PSV81.7 cm/s Left PIGEON FANCIER Dist PIGEON FANCIER Dist PSV 153 cm/s Right COLOR MAKER Distal COLOR MAKER Distal PSV89.6 cm/s Left COLOR MAKER Distal COLOR MAKER Distal PSV87.2 cm/s Right SPEEDY Prox SPEEDY Prox PSV65.1 cm/s Right SPEEDY Distal SPEEDY Distal PSV65.1 cm/s Left SPEEDY Distal SPEEDY Distal PSV69.2 cm/s Signed 09/07/2018 06:38 AM Carlos Eduardo Martin MD, RPVI Procedure Note Interface, Radiology Results In - 09/07/2018 6:39 AM [facility] Vascular Ultrasound Laboratory Lower Extremity Arterial Duplex Report [address] [place] [address] Pat.Name: JANNIE MCKNIGHT Pat.ID: [id number] .Date: 09/06/2018 Refer.MD: CHAZ KOCH MD Exam Time: 1:30:00 PM Study Type:LE Arterial Height: 63in Weight: 200lb BSA: 1.94 m2 Age: 12 1950,68Y Sex: FEMALE Sonogrphr: ELOINA Mcnamara. Stat.:Outpatient Tape Vol: JJ, CPT - 4: 01169, 75162 Echo Event ID:[id number] Order ID: [id number] Reason for Study:Cold and discoloration of toes. [...] cm/s Pop Prox PSV 56.9 cm/s Left COLOR MAKER Dist COLOR MAKER Dist PSV 87.2 cm/s Left COLOR MAKER Mid COLOR MAKER Mid PSV 82.5 cm/s Left COLOR MAKER Prox COLOR MAKER Prox PSV 63.9 cm/s Left Peroneal Dist [...] Mid SPEEDY Mid PSV 65.7 cm/s Right COLOR MAKER Prox COLOR MAKER Prox PSV 66.8 cm/s COLOR MAKER Prox PSV 66.8 cm/s Right Pop Dist Pop Dist PSV 127 cm/s Right Pop Prox Pop Prox PSV 71.5 cm/s Right COLOR MAKER Dist COLOR MAKER Dist PSV 89.6 cm/s Right COLOR MAKER Mid COLOR MAKER Mid PSV 82.5 cm/s Right Peroneal Dist Peroneal Dist P 61.6 cm/s Right Peroneal Mid Peroneal Mid PS 65.2 cm/s Right Peroneal Prox Peroneal Prox P 100 cm/s Right SFA Dist SFA Dist PSV 78.6 cm/s Right SFA Mid SFA Mid PSV 99 cm/s Right SFA Prox SFA Prox PSV 91.9 cm/s Right Profunda Profunda PSV 58.9 cm/s Right PIGEON FANCIER Dist PIGEON FANCIER Dist PSV 81.7 cm/s Left PIGEON FANCIER Dist PIGEON FANCIER Dist PSV 153 cm/s Right COLOR MAKER Distal COLOR MAKER Distal PSV 89.6 cm/s Left COLOR MAKER Distal COLOR MAKER Distal PSV 87.2 cm/s Right SPEEDY Prox SPEEDY Prox PSV 65.1 cm/s Right SPEEDY Distal SPEEDY Distal PSV 65.1 cm/s Left SPEEDY Distal SPEEDY Distal PSV 69.2 cm/s Signed 09/07/2018 06:38 AM Carlos Eduardo Martin MD, RPVI Performing Organization Address City/State/Zipcode Phone Number [facility] [address] [place] [address] 1 or 2 Trigger Point Injection: R sacral, left (08/23/2018 11:00 AM GRAPHIC ENGINEER) Narrative Performed At Clifford Iverson MD 08/23/20182:00 [...] Ankle 3+ Vw Right (07/05/2018 3:51 PM GRAPHIC ENGINEER) Specimen Narrative Performed At 3 weightbearing views of the right ankle obtained today demonstrate valgus HM [facility] tibiotalar arthritis with narrowing of the lateral tibiotalar joint space and valgus talar tilt.There is evidence of well-healed triple arthrodesis and first TMT fusion with persistent hindfoot valgus and arch collapse.Previous foot radiographs demonstrate persistent forefoot abduction. Performing Organization Address City/State/[facility] Phone Number [facility] [address] [place] [address] after 04/02/2018 (Work) [phone] Advance Directives Patient has advance care planning documents on file. For more information, please contact:Travis Rich[address] [place] [address]
--- OUTSIDE RECORDS SUMMARY | 2019-04-03 11:09 | XMS REPORT | Clinical Summary ---
:1950 Author Organization [facility] Address [address] [place] [address] Care Team Providers Name Role Phone Lindsey [...] 100 06/22/2012 Overview: SNOMED/[place] [id number] GERD (gastroesophageal reflux disease) Restless leg syndrome [...] Signs Not on file Plan of Treatment Not on file Results Not on fileafter 04/02/2018 Insurance Payer Benefit Plan / Group Subscriber ID Type Phone Address AETNA - MGD CARE AETNA PPO [facility] xxxxxxxxx PPO
== END 2019-04-03 11:35 | disposition home or self-care (01) ==
LOC: DS 11:04
PROVIDERS: ATTEND Internal Medicine Gastroenterology
DX: Z45.2 Encounter for adjustment and management of vascular access device (principal); K51.90 Ulcerative colitis, unspecified, without complications
CPT/HCPCS: 96523; J1642

== ENCOUNTER 2019-08-19 08:48 | Day surgery (SDC) | payer OTHER ==
[~2019-08-19 08:48] MED LIST: ALTEPLASE 2 MG/VIAL IV SCH; WATER FOR INJ,STERILE 10 ML IV SCH
[2019-08-19] MEDS ORDERED: HEPARIN 500 UNIT/5 ML SYR IV ONE (09:39)
[2019-08-19 10:36] VITALS: BP 123/61; TEMP 96.5; O2SAT 95; BMI 27.3
== END 2019-08-19 10:10 | disposition home or self-care (01) ==
LOC: DS 08:48
PROVIDERS: ATTEND Internal Medicine Gastroenterology
DX: Z45.2 Encounter for adjustment and management of vascular access device (principal); K51.90 Ulcerative colitis, unspecified, without complications
CPT/HCPCS: 96523; J1642

== ENCOUNTER 2020-01-21 11:15 | Day surgery (SDC) | payer OTHER ==
--- OUTSIDE RECORDS SUMMARY | 2020-01-21 11:30 | XMS REPORT | Clinical Summary ---
:1950 Author Organization [facility] [place] [address] [place] [address] Care Team Providers Name Role Phone Tiesha Epperson MD Primary Care Provider Allergies Active Allergy Reactions Severity Noted Date Comments Adhesive 12/10/2015 Ferumoxytol 12/10/2015 Penicillins 12/10/2015 Sulfa (Sulfonamide Antibiotics) 6 Tetanus Toxoid Adsorbed 12/10/2015 Dulaglutide 01/02/2018 abdominal pain Liraglutide 09/04/2018 Stomach pain Medications Medication Sig Dispensed Refills Start End Date Status Date montelukast Take 10 mg by 0 Acti ve (SINGULAIR) 10 mg mouth nightly. 6 tablet multivitamin Take 1 tablet 0 Act rod (THERAGRAN) tablet by mouth daily. AMPHETAMINE-DEXTRO 30 mg every 0 Active AMPHETAMINE 20 MG morning. 6 tablet biotin 1 mg Take by mouth 0 Acti ve capsule daily. cholecalciferol, Take 2,000 0 Ac tive vitamin D3, Units by mouth (VITAMIN D3) 1,000 daily. unit capsule calcium Take 1 tablet 0 Active citrate-vitamin D3 by mouth 2 (CITRACAL+D) (two) times a 315-200 mg-unit day. per tablet ALPRAZolam (XANAX) Take 0.5 mg by 5 Active 0.5 MG tablet mouth nightly. 6 buPROPion SR Take 150 mg by 5 Ac tive (WELLBUTRIN SR) mouth every 7 150 MG 12 hr morning. tablet HYDROcodone-acetam 0 A ctive inophen (NORCO) 8 5-325 mg per tablet citalopram Take 1 tablet 90 tablet 1 Activ e (CeleXA) 40 MG (40 mg total) 7 tablet by mouth nightly. TAKE 1 TABLET EVERY DAY coenzyme Q10 200 Take 200 mg by 0 Active mg capsule mouth daily. B INFANTIS/B ANI/B Take by mouth. 0 Active WENDY/B BIFID (PROBIOTIC 4X ORAL) metFORMIN 2 po bid 360 tablet 3 Active (GLUCOPHAGE) 500 9 mg tabletIndications: Type 2 diabetes mellitus without complication, with long-term current use of insulin ([facility]) metoprolol TAKE 1 TABLET 90 tablet 3 Activ e succinate XL BY MOUTH EVERY 9 (TOPROL-XL) 25 mg DAY 24 hr tablet (DISCONTINUE 50MG) ondansetron Take 1 tablet 20 tablet 0 Acti ve (ZOFRAN) 4 MG (4 mg total) by 9 tablet mouth every 8 (eight) hours as needed for nausea or vomiting. pramipexole Take 1 tablet 270 tablet 3 07/09/20 Act rod (MIRAPEX) 1 MG (1 mg total) by 9 20 tablet mouth 3 (three) times a day. pantoprazole Take 1 tablet 180 tablet 3 Ac tive (PROTONIX) 40 MG (40 mg total) 9 EC tablet by mouth 2 (two) times a day. potassium chloride 1 po every 45 tablet 3 Active (K-DUR) 10 MEQ CR other day 9 tablet diclofenac Apply one gram 5 Tube 0 Acti ve (VOLTAREN) 1 % gel to affected 0 area 4 times daily rosuvastatin TAKE 1 TABLET 90 tablet 3 Act rod (CRESTOR) 10 MG BY MOUTH EVERY 0 tablet DAY blood sugar CHECK BLOOD 200 strip 3 Activ e diagnostic strips SUGAR TWICE PER 0 (OneTouch Ultra DAY Test) strip test stripsIndications: Type 2 diabetes mellitus without complication, with long-term current use of insulin ([facility]) Tradjenta 5 mg TAKE 1 TABLET 90 tablet 3 A ctive tabletIndications: BY MOUTH EVERY 0 Type 2 diabetes DAY WITH mellitus without BREAKFAST complication, with long-term current use of insulin ([facility]) triamterene-hydroc Every other day 45 tablet 0 Active hlorothiazid 0 (MAXZIDE-25) 37.5-25 mg per tabletIndications: Essential hypertension levothyroxine Take 1 tablet 30 tablet 01/19/20 Ac tive (Synthroid) 100 (100 mcg total) 0 21 mcg tablet by mouth daily. pramipexole Take 1 mg by 0 07/10/20 Disco ntinued (MIRAPEX) 0.5 MG mouth 2 (two) 19 tablet times a day. Takes 1 tab in the morning and 2 tabs at night albuterol (PROAIR Inhale 2 puffs 0 0 Discontinued HFA) 90 every 6 (six) 20 mcg/actuation hours as needed inhaler for wheezing. lidocaine apply 1-2 grams 11 04/10/20 Disc ontinued (XYLOCAINE) 5 % TO affected 6 ointment AREAS FOUR TIMES DAILY, apply in combination WITH topical PAIN cream (USE last) ONETOUCH ULTRA CHECK TWICE PER 3 12/13/19 Discontinued TEST strip test DAY 6 20 (Reo rder) strips pantoprazole Take 40 mg by 0 07/12/20 Dis continued (PROTONIX) 40 MG mouth daily. 19 (Reorder) EC tablet fluticasone 2 sprays by 0 04/10/20 Discon tinued (FLONASE) 50 Each Nare route 19 mcg/actuation daily. nasal spray metoprolol TAKE 1 TABLET 90 tablet 3 05/19/20 Disco ntinued succinate XL BY MOUTH EVERY 8 19 (R eorder) (TOPROL-XL) 25 mg DAY 24 hr tablet (DISCONTINUE 50MG) rosuvastatin TAKE 1 TABLET 90 tablet 3 10/27/19 Dis continued (CRESTOR) 10 MG BY MOUTH EVERY 9 20 tablet DAY linagliptin Take 1 tablet 90 tablet 3 12/14/19 Disc ontinued (TRADJENTA) 5 mg (5 mg total) by 9 20 tabletIndications: mouth daily Type 2 diabetes with breakfast. mellitus without complication, with long-term current use of insulin ([facility]) triamterene-hydroc TAKE 1 TABLET 90 tablet 3 0 Discontinued hlorothiazid BY MOUTH EVERY 05 16 (R eorder) (MAXZIDE-25) DAY 37.5-25 mg per tablet metFORMIN Take 1 tablet 180 tablet 3 04/10/20 Disco ntinued (GLUCOPHAGE) 500 (500 mg total) 9 19 (Reorder) mg by mouth 2 tabletIndications: (two) times a Type 2 diabetes day with meals. mellitus without complication, with long-term current use of insulin ([facility]) ranitidine Take 1 tablet 90 tablet 3 10/02/19 Disco ntinued (ZANTAC) 300 MG (300 mg total) 9 20 tablet by mouth nightly. levothyroxine Take 137 mcg by 30 tablet 11 06/22/20 Discontinued (SYNTHROID) 137 mouth daily. 9 19 mcg tablet potassium chloride Take 1 tablet 30 tablet 11 0 Discontinued (K-DUR,KLOR-CON) (10 mEq total) 9 10 MEQ CR tablet by mouth daily. moxifloxacin Administer 1 1.05 mL 0 01/22/20 Expi red (VIGAMOX) 0.5 % drop to both 05 16 ophthalmic eyes 3 (three) solution times a day for 7 days. acetaminophen-code Take 1-2 90 tablet 1 04/26/20 D iscontinued ine (TYLENOL WITH tablets by 05 16 ( Reorder) CODEINE #3) 300-30 mouth every 4 mg per (four) hours as tabletIndications: needed for acute pain, moderate pain chronic pain for up to 180 days .Acute Pain, chronic pain. acetaminophen-code Take 1-2 90 tablet 1 10/02/19 D iscontinued ine (TYLENOL WITH tablets by 9 20 CODEINE #3) 300-30 mouth every 4 mg per (four) hours as tabletIndications: needed for acute pain, moderate pain chronic pain for up to 180 days .Acute Pain, chronic pain. levothyroxine Take 1 tablet 30 tablet 11 01/19/20 Di scontinued (SYNTHROID) 125 (125 mcg total) 9 20 mcg tablet by mouth daily. potassium chloride Take 1 tablet 30 tablet 11 0 Discontinued (K-DUR) 10 MEQ CR (10 mEq total) 9 19 (Reorder) tablet by mouth daily. pantoprazole TAKE 1 TABLET 180 tablet 0 07/14/20 Di scontinued (PROTONIX) 40 MG BY MOUTH TWICE 9 19 (Reorder) EC tablet A DAY triamterene-hydroc Take 1 tablet 45 tablet 3 0 Discontinued hlorothiazid by mouth daily. 9 20 (MAXZIDE-25) 37.5-25 mg per tablet HYDROcodone-acetam chronic pain. 1 60 tablet 0 08/17 inophen (NORCO) po q 6 hours 9 10-325 mg per prn chronic tabletIndications: pain chronic pain cefdinir (OMNICEF) Take 1 capsule 14 capsule 0 10/09 300 MG (300 mg total) 0 20 capsuleIndications by mouth 2 : Bladder (two) times a infection day for 7 days. Active Problems Problem Noted Date Lipoma of back 06/11/2019 Attention deficit disorder (ADD) without hyperactivity 04/10/2019 Overview: Dr Cazares will be the new doctor. 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 Landers 08/2014 echo with HTN heart disease, RBBB, left ventricular outflow gradient without obstruction, mild LVH, small pericardial effusion Hypothyroidism 06/22/2012 Overview: Overview: 09/2015 add 30mg of armour to her 120mg Type 2 diabetes mellitus without complication, with lo ng-term current use 06/22/2012 of insulin Ulcerative colitis 06/22/2012 Overview: Overview: Dr. Hart for consideration Dr. Cleveland Mixon Encounters Date Type Specialty Care Team Description 01/19/2020 Orders Only Internal Medicine Lindsey Epperson MD 12/17/2019 Telemedicine [facility] MD Tiesha Hypersomnia; Muscle pain; Tinnitus of bot h ears; Muscle cramps 12/15/2019 Travel 12/13/2019 Refill Internal Medicine Lindsey Epperson Type 2 diabetes MD Tiesha mellitus withou t complication, w ith long-term curre nt use of insulin (HCC ) 11/14/2019 Refill Orthopedic Surgery Binh Morrow PA-C 10/27/2019 Refill Internal Medicine Lindsey Epperson MD 10/23/2019 Office Visit Orthopedic Surgery Herbie Sierra p ain of right knee (Primary Dx); MD Kevin Primary osteoar thritis of right knee 10/04/2019 Telephone Orthopedic Surgery Ofelia Henry MA 10/02/2019 Office Visit Internal Medicine Lindsey Epperson infection (Primary Dx); MD Tiesha Need for prophy lactic vaccination with Streptococcus pneumoniae (Pneumococcus) and Influenza vaccines; Type 2 diabetes mellitus without complication, with long-term current use of insulin (HCC); Abnormal thyroi d function test; Essential hyper tension; Other fatigue; Chronic pain of right ankle 09/25/2019 Office Visit Orthopedic Surgery Pepe Elder Lipoma of right lower extremity (Primary Dx); JAKOB Caban Lumbar radiculo isaura, right; Degeneration of intervertebral disc of lumbar region; Sagittal plane imbalance; Adjacent segmen t disease with kyphosis; Degenerative sc oliosis in adult patient; Chronic low oscar k pain without sciatica, unspecified back pain laterality 09/25/2019 Hospital Encounter Radiology Aris Meehan Lipoma o f right lower MD Huang extremity 09/12/2019 Orders Only Orthopedic Surgery Pepe Elder Lipoma of right lower JAKOB Caban extremity (Prim leon Dx) 08/25/2019 Orders Only Internal Medicine Lindsey Epperson MD 08/19/2019 Orders Only Internal Medicine Paola Toney MA Visit f or screening mammogram 07/18/2019 Office Visit Orthopedic Surgery Clifford Iverson low back pain, unspecified back pain laterality, unspecified whether sciatica present (Primary Dx); MD Mee Status post lum bar laminectomy; Spondylosis of lumbar region without myelopathy or radiculopathy 07/14/2019 Orders Only Internal Medicine Lindsey Epperson MD 07/12/2019 Refill Internal Medicine Lindsey Epperson MD 07/10/2019 Orders Only Internal Medicine Lindsey Epperson MD 06/22/2019 Orders Only Internal Medicine Lindsey Epperson MD 06/21/2019 Telephone Internal Medicine Lindsey Epperson Visit for screening MD Tiesha mammogram (Prim leon Dx) 06/20/2019 Telephone Orthopedic Surgery Anai Vargas PA-C 06/11/2019 Telephone Internal Medicine Lindsey Epperson MD 05/19/2019 Refill Internal Medicine Lindsey Epperson MD 04/26/2019 Refill Orthopedic Surgery Emilie Stein, MS 04/26/2019 Refill Orthopedic Surgery Emilie Stein, MS 04/23/2019 Office Visit Orthopedic Surgery Darvin Mendez Acute ri t ankle pain (Primary Dx); MD [facility]; Posterior tibia l tendon dysfunction (PTTD) of right lower extremity; Post-traumatic osteoarthritis of right foot 04/10/2019 Office Visit Internal Medicine Lindsey Epperson al thyroid function test (Primary Dx); MD Tiesha Type 2 diabetes mellitus without complication, with long-term current use of insulin (HCC); Familial hyperc holesterolemia; Breast pain, le ft 04/10/2019 Office Visit Orthopedic Surgery Pepe Elder Chronquique c low back pain without sciatica, unspecified back pain laterality (Primary Dx); JAKOB Caban Degenerative sc oliosis in adult patient; Bilateral hip p ain; Lipoma of chest wall; Pelvic lipomato sis 02/27/2019 Orders Only Orthopedic Surgery Pepe Elder Parasp inal mass JAKOB Caban (Primary Dx) 02/04/2019 Office Visit Orthopedic Surgery Haven Chavis Diane, PA-C unspecified loc ation (Primary Dx) after 01/20/2019 Immunizations Name Administration Dates Next Due FLUZONE HIGH-DOSE PF 05/24/2019, 05/24/2017 FLUZONE QUAD 05/14/2018 Influenza Trivalent 05/18/2011 Influenza Whole 05/22/2016, 06/04/2015 Pneumococcal Conjugate 13-Valent 07/10/2017 Pneumococcal Polysaccharide 10/02/2019 Family History Medical History Relation Name Comments [...] Former Smoker Cigarettes 0.25 15 08/26/1967 - 0 11/26/1978 Smokeless Tobacco: Never Used Alcohol Use Drinks/Week oz/Week Comments No Sex Assigned at Date Recorded Not on file Job Start Date Occupation Industry Not on file Not on file Not on file Travel History Travel Start Travel End No recent travel history available. Last Filed Vital Signs Vital Sign Reading Time Taken Comments Blood Pressure 130/74 12/16/2019 3:41 PM CDT Pulse 86 10/02/2019 11:28 AM [facility] Temperature 36.6 C (97.9 F) 02/04/2019 11:13 AM CDT Respiratory Rate 16 12/16/2019 3:41 PM CDT Oxygen Saturation 95% 10/02/2019 11:28 AM [facility] Inhaled Oxygen Concentration - - Weight 74.8 kg (165 lb) 12/16/2019 3:41 PM CDT Height 161.3 cm (5' 3.5") 12/16/2019 3:41 PM CDT Body Mass Index 28.77 12/16/2019 3:41 PM CDT Plan of Treatment Health Maintenance Due Date Last Done Comments SHINGLES VACCINES (#1) 2001 DIABETIC FOOT EXAM 09/07/2017 09/07/2016 INFLUENZA VACCINE 03/28/2020 05/24/2019, 05/14/2018, 2016, Additional history exists DIABETIC RETINAL EYE EXAM 03/15/2021 03/15/2019, 02/08/2018 , 08/24/2016 BREAST CANCER SCREENING 08/19/2021 08/19/2019, 2018 COLONOSCOPY SCREENING 08/22/2024 08/22/2014 65+ PNEUMOCOCCAL VACCINE Completed 10/02/2019, 07/10/2017 Procedures Procedure Name Priority Date/Time Associated Diagnosis Comme nts XR LEG LENGTH Routine 10/23/2019 3:08 Acute pain of right Res ults for this EVALUATION PM [facility] knee procedure are i n the results section. XR KNEE 3 VW RIGHT Routine 10/23/2019 3:07 Acute pain of righ t Results for this PM [facility] knee procedure are i n the results section. MRI PELVIS W WO Routine 09/25/2019 12:03 Lipoma of right lower Results for this CONTRAST PM [facility] extremity procedure are i n the results section. ESTIMATED GFR Routine 09/25/2019 10:44 Results fo r this AM [facility] procedure are i n the results section. POC CREATININE Routine 09/25/2019 10:44 Results f or this AM [facility] procedure are i n the results section. XR FOOT 3+ VW RIGHT Routine 04/23/2019 2:58 Acute right ankle pain Results for this PM CDT Arthritis of right procedure are in ankle the results Posterior tibial section. tendon dysfunction (PTTD) of right lower extremity Post-traumatic osteoarthritis of right foot XR ANKLE 3+ VW Routine 04/23/2019 2:58 Acute right ankle pain Results for this RIGHT PM CDT procedure are i n the results section. XR CALCANEUS 2+ VW Routine 04/23/2019 2:57 Acute right ankle pain Results for this RIGHT PM CDT Arthritis of right procedure are in ankle the results Posterior tibial section. tendon dysfunction (PTTD) of right lower extremity Post-traumatic osteoarthritis of right foot MRI CHEST WO Routine 04/19/2019 3:02 Paraspinal mass Results for this CONTRAST PM CDT procedure are i n the results section. after 01/20/2019 Results XR Leg Length Evaluation (10/23/2019 3:08 PM [facility]) Specimen Narrative Performed At This result has an attachment that is no t available. The leg alignment x-ray shows mechanical axis of both lower extremities HM [facility] falls to the center of the knee joints where if anythi ng there is a slight decrease in medial joint space and medial tibial plate au sclerosis. At the top of the film is evidence of a multilevel level lumbar fusion. I see no evidence of hip or ankle arthritis although a s crew in the subtalar joint on the right side is noted. Performing Organization Address [facility]/[employer] Phone Number [facility] [address] [place] [address] XR Knee 3 Vw Right (10/23/2019 3:07 PM MANAGER PS[facility]CHI[facility]RY) Specimen Narrative Performed At This result has an attachment that is no t available. 3 x-ray views of both knees show decreased medial joint space left worse HM [facility] than right. No osteophytes are present. The patell ofemoral joints are normal. On there is right on the right side there is evidence of healing of an old proximal one third spiral fibula fracture. Performing Organization Address [facility]/[employer] Phone Number [facility] [address] [place] [address] MRI Pelvis W Wo Contrast (09/25/2019 12:03 PM MANAGER PS[facility]CHI[facility]RY) Specimen Narrative Performed At This result has an attachment that is no t available. EXAMINATION: MRI PELVIS W WO CONTRAST HM [facility] CLINICAL HISTORY: D17.23 Benign lipoma tous neoplasm of skin and subcutaneous tissue of right leg, right gluteal soft tissue abnormality rule out lipoma TECHNIQUE: Multiplanar, multisequence MR imaging examination of the pelvis obtained prior to and following gadolinium IV contrast. COMPARISON: CT pelvis 09/07/2016 IMPRESSION: 1.Skin marker indicating the area of con cern along the posterolateral aspect of the right buttock. There is copious subjacent adipose tissue, though no discrete lipoma or other abnormality is identified. 2.An equivocal lipoma is noted more post erior, and approximately 10 cm cranial to the skin marker, in the deep subcutaneous fat immediately superficial to the lateral margin of the right gluteus janay measuring 8.0 x 3.5 cm, series 4 image 11, and series 11 image 10. However, this could simply represent a prominent lobule of subcutaneous fat. No soft tissue component is identified to indicate atypia. 3.The visualized musculature appears wel l-maintained. Partially visualized is a distal proctocolectomy with a right lower quadrant ostomy and a bowel containing large right lower quadrant parastomal hernia unchanged. 4.The urinary bladder grossly unremarkable. Hysterecto my. 5.Cystic formation in the left acetabula r roof due to moderate left hip OA. Postop change within the lumbar spine partially seen. 6.No free fluid identified within the pelvis. 7.A mildly enlarged right external iliac chain lymph node measuring 14 mm is not significant changed from CT of 09/07/2016. No new lymphadenopathy is identified. SUMMARY: No lipoma or other soft tissue mass or l esion corresponding to the skin marker. An equivocal lipoma more proximally as detailed above, may simply represent prominent subcutaneous fat. No suspicious finding is identified. Incidental findings as above. [id number] Procedure Note Hm Interface, Radiology Results Incoming - 09/25/2019 12:56 PM [facility]NAGER [facility] EXAMINATION: MRI PELVIS W WO CONTRAST CLINICAL HISTORY: D17.23 Benign lipomat ous neoplasm of skin and subcutaneous tissue of right leg, right gluteal soft tissue abnormality rule out lipoma TECHNIQUE: Multiplanar, multisequence M R imaging examination of the pelvis obtained prior to and following gadolinium IV contrast. COMPARISON: CT pelvis 09/07/2016 IMPRESSION: 1.Skin marker indicating the area of con cern along the posterolateral aspect of the right buttock. There is copious subjacent adipose tissue, though no discrete lipoma or other abnormality is identified. 2.An equivocal lipoma is noted more post erior, and approximately 10 cm cranial to the skin marker, in the deep subcutaneous fat immediately superficial to the lateral margin of the right gluteus janay measuring 8.0 x 3.5 cm, series 4 image 11, and series 11 image 10. However, this could simply represent a prominent lobule of subcutaneous fat. No soft tissue component is identified to indicate atypia. 3.The visualized musculature appears wel l-maintained. Partially visualized is a distal proctocolectomy with a right lower quadrant ostomy and a bowel containing large right lower quadrant parastomal hernia unchanged. 4.The urinary bladder grossly unremarkab le. Hysterectomy. 5.Cystic formation in the left acetabula r roof due to moderate left hip OA. Postop change within the lumbar spine partially seen. 6.No free fluid identified within the pe lvis. 7.A mildly enlarged right external iliac chain lymph node measuring 14 mm is not significant changed from CT of 09/07/2016. No new lymphadenopathy is identified. SUMMARY: No lipoma or other soft tissue mass or l esion corresponding to the skin marker. An equivocal lipoma more proximally as detailed above, may simply represent prominent subcutaneous fat. No suspicious finding is identified. Incidental findings as above. [id number] Performing Organization Address City/[facility]/Zipcode Phone Number [facility] [address] [place] [phone] Estimated GFR (09/25/2019 10:44 AM MANAGER PSYCHIATRY) [facility] Estimated GFR 66 mL/min/1.73 SKIPWITH GNOSTICIST Comment: HOSPITAL Catergory Units Interpretation G1 >=90 Normal or high G2 60-89 Mildly decreased G3a 45-59 Mildly to moderately decreas ed G3b 30-44 Moderately to severely decre ased G4 15-29 Severely decreased G5 <15 Kidney failure The eGFR was calculated using the Chronic Kidney Disea se Epidemiology Collaboration (CKD-EPI) equation. Interpretation is based on recommendations of the National Kidney Foundation-Kidney Disease Outcomes Celio lity Initiative (NKF-KDOQI) published in 2014. Specimen Blood Performing Organization Address City/[facility]/Zipcode Phone Number [facility] DEPARTMENT OF PATHOLOGY AND [address] [place] [phone] GENOMIC MEDICINE [address] [address] POC creatinine (09/25/2019 10:44 AM MANAGER PSYCHIATRY) Pathologist [facility] POC creatinine 0.9 0.5 - 0.9 [facility] Comment: mg/dl HOSPITAL Relay Checker Name: Jayce Hugo Device ID: [id number] Specimen Blood Performing Organization Address [facility]/Zipcode Phone Number [facility] DEPARTMENT OF PATHOLOGY AND [address], [place] [address] GENOMIC MEDICINE [facility] [address] [place] [address] XR Foot 3+ Vw Right (04/23/2019 2:58 PM CDT) Specimen Narrative Performed At This result has an attachment that is no t available. 3 views of her right foot done weightbearing today shows previous triple HM [facility] arthrodesis with a single screw traversing the talonav icular joint. Remaining hardware is been removed. The fusion sites look well-healed. First tarsometatarsal joint also fused with 2 crossing screws. The lateral radiograph shows mild sagging through the valentino culocuneiform joint. Mild abduction through the midfoot although looks pre tty symmetric to the opposite side. Osteopenia on the right compared to t he left. Performing Organization Address [facility] Phone Number [facility] [address] [place] [address] XR Ankle 3+ Vw Right (04/23/2019 2:58 PM CDT) Specimen Narrative Performed At This result has an attachment that is no t available. 3 views of her right ankle done weightbearing today shows mild valgus HM [facility] tilting the tibiotalar joint. There is some narrowin g of the lateral joint space. The lateral radiograph shows a healed t riple arthrodesis with some sag through the naviculocuneiform joint. Performing Organization Address [facility]/Zipcode Phone Number HM [facility] [address] [place] [address] XR Calcaneus 2+ Vw Right (04/23/2019 2:57 PM CDT) Specimen Narrative Performed At This result has an attachment that is no t available. 2 views of her os calcis done today shows a healed triple arthrodesis. [facility] Single screw traversing the talonavicular joint that i s broken in the talus. Axial alignment shows mild valgus. No acute fractures. Performing Organization Address [facility]/Zipcode Phone Number [facility] [address] [place] [address] MRI Chest Wo Contrast (04/19/2019 3:02 PM CDT) Specimen Narrative Performed At This result has an attachment that is no t available. EXAMINATION: MRI CHEST WO CONTRAST [facility] CLINICAL HISTORY: R22.2 Localized swel ling mass and lump trunk, left paraspinal mass-place marker over the area of concern TECHNIQUE: Multiplanar multisequence MR images of the posterior left upper chest with attention to the area of clinical concern obtained. MRI marker was placed over the palpable abnormality. The lack of intravenous contrast reduces the sensitivity of the examination. COMPARISON: None. FINDINGS: 1. There is MRI marker overlying the posterior left upper chest. 2. There is normal subcutaneous fat si gnal intensity subjacent to the MRI marker. The palpable abnormality may reflect asymmetric distribution of subcutaneous fat or a partially encapsulated subcutane ous lipoma. No edema or suspicious signal abnormality noted. 3. The subjacent left posterior chest wall musculatu re is unremarkable. IMPRESSION: No suspicious mass noted in the posteri or left chest subjacent to the MRI marker. Differential consideration includes asymmetric distribution of subcutaneous fat or partially encapsulated simple lipoma accounting for the palpable abnormality. [id number] Procedure Note Interface, Radiology Results Incoming - 04/19/2019 3:12 PM CDT EXAMINATION: MRI CHEST WO CONTRAST CLINICAL HISTORY: R22.2 Localized swell ing mass and lump trunk, left paraspinal mass-place marker over the area of concern TECHNIQUE: Multiplanar multisequence MR images of the posterior left upper chest with attention to the area of clinical concern obtained. MRI marker was placed over the palpable abnormality. The lack of intravenous contrast reduces the sensitivity of the examination. COMPARISON: None. FINDINGS: 1. There is MRI marker overlying the po sterior left upper chest. 2. There is normal subcutaneous fat sig nal intensity subjacent to the MRI marker. The palpable abnormality may reflect asymmetric distribution of subcutaneous fat or a partially encapsulated subcutaneous lipoma. No edema or suspicious signal abnormality noted. 3. The subjacent left posterior chest w all musculature is unremarkable. IMPRESSION: No suspicious mass noted in the posteri or left chest subjacent to the MRI marker. Differential consideration includes asymmetric distribution of subcutaneous fat or partially encapsulated simple lipoma accounting for the palpable abnormality. 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
--- OUTSIDE RECORDS SUMMARY | 2020-01-21 11:31 | XMS REPORT | Clinical Summary ---
:1950 Author Organization [facility] Address [address] [place] [address] Care Team Providers Name Role Phone Kasandra Epperson MD Primary Care Provider Unavailable Allergies Active Allergy Reactions Severity Noted Date [...] ORAL) BIOTIN ORAL Take by mouth 0 Acti ve daily. CRESTOR 10 mg tablet TAKE 1 TABLET BY 90 tablet 1 12/26/2014 Active MOUTH EVERY DAY metoprolol (TOPROL-XL) TAKE 1 TABLET DAILY 90 tablet 3 015 Active 25 MG 24 hr tablet citalopram (CELEXA) 40 TAKE 1 TABLET EVERY 90 tablet 1 015 Active MG tablet DAY butalbital-acetaminoph Take one [...] Take 1 tablet (120 90 tablet 3 6 Active Tab mg total) by mouth daily. 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 Last Filed Vital Signs Not on file Plan of Treatment Health Maintenance Due Date Last Done Comments COLON CANCER SCREENING COLONOSCOPY 1950 PNEUMOCOCCAL 65+ LOW/MEDIUM RISK (1 of 2 - 2016 PCV13) BREAST CANCER SCREENING 08/03/2017 08/03/2015, 03/01/2013 INFLUENZA VACCINE (#1) 2019 06/04/2015, 05/18/2011 Results Not on fileafter 01/20/2019 Insurance Payer Benefit Plan / Group Subscriber ID Type Phone A ddress [employer] - [employer] CARE [employer] PPO [facility] xxxxxxxxx PPO
--- OUTSIDE RECORDS SUMMARY | 2020-01-21 11:32 | XMS REPORT ---
:1950 Author Organization [facility] t Address [address] [place] [address] Care Team Providers Name Role Phone Alonso Epperson MD. Primary Care Physician Tiesha Epperson MD Attending Clinician Felipe Morrow PA-C Attending Clinician Kevin Sierra MD Attending Clinician Carl [place] Attending Clinician Unavailable Zoran CH, A. WTravis Attending Clinician Mee Elder PA-C Attending Clinician Feng [place] Attending Clinician Unavailable Mee Iverson MD Attending Clinician Mee Vargas PA-C Attending Clinician Emil [place] Attending Clinician Unavailable Poly Mendez MD Attending Clinician Jayshree Chavis PA-C Attending Clinician LEON Attending Clinician Unavailable BEN Attending Clinician Unavailable Payers Payer Name Policy Type Policy Number Effective Date Expiration Date Jonh chan AETNA xxxxxxxx 2016 [place] MEDICAREAETNA 00:00:00 [facility] MEDICARE HMO/PPO [id number] Problems Condition Condition Condition Status Onset Resolution Last Treating Co mments Source Name Details Category Date Date Treatment Clinician Date Lipoma of Lipoma of Disease Active 2018-08 [facility] ston back back 0-15 Methodi 00:00: st 00 Attention Attention Disease Active Overview: Leslie deficit deficit 8-14 Dr Debora Christian di disorder disorder 00:00: will be st (ADD) (ADD) 00 the new without without doctor. hyperactiv hyperactiv ity ity Parastomal Parastomal Disease Active H dhruv hernia hernia 1-24 Methodi 00:00: st 00 Pain of Pain of Disease Active 2017-08 Leslie both hip both hip 2-27 Method i joints joints 00:00: st 00 History of History of Disease Active Overview : Leslie EMG EMG -14 11/2017 Methodi 00:00: left st 00 carpal tunnel, And sensorine uropathy Dr Dutta Breakage Breakage Disease Active 2016-08 [place] of of 2-15 Method[facility] internal internal 00:00: st fixation fixation 00 device in device in bone bone H/O H/O Disease Active 2016-08 Overview: Nurys yoder mammogram mammogram 09-17 Met hodi 00:00: wnl12/10/ st [address] [facility] wnl12/201 9 wnl Chronic Chronic Disease Active 2016-08 Leslie low back low back 0-04 Method i pain pain 00:00: st 00 Bursitis Bursitis Disease Active [place] of hip of hip 05-17 Methodi 00:00: st 00 Postsurgic Postsurgic Disease Active H dhruv al al 05-16 Methodi arthrodesi arthrodesi 00:00: st s status s status 00 Spondylosi Spondylosi Disease Active H dhruv s of s of 05-16 Methodi lumbar lumbar 00:00: st region region 00 without without myelopathy myelopathy or or radiculopa radiculopa thy thy Nonallopat Nonallopat Disease Active H dhruv hic lesion hic lesion 05-16 Me thodi of hip of hip 00:00: st region region 00 Status Status Disease Active Leslie post post 05-16 Methodi lumbar lumbar 00:00: st laminectom laminectom 00 y y Skin Skin Disease Active Overview: Nurys yoder cancer cancer 03-17 Methodi 00:00: right st 00 cheek melanoma in situRight hernandez benign Post-traum Post-traum Disease Active H ouprecious atic atic 5-30 Methodi osteoarthr osteoarthr 00:00: st itis of itis of 00 right foot right foot Breakdown Breakdown Disease Active Adams ston (mechanica (mechanica 5-30 Me thodi l) of l) of 00:00: st other other 00 internal internal orthopedic orthopedic devices, devices, implants implants and and grafts, grafts, initial initial encounter encounter History of History of Disease Active Overview : Travis nuclear nuclear 5-12 12/26/2016 Method i stress stress 00:00: Dr griffith test test 00 Anshul wnl Encounter Encounter Disease Active 2015-08 Overview: Travis for eye for eye 09-21 Methodi exam in exam in 00:00: wnl12/201 st patient patient [address] with type with type Rogers is 2 diabetes 2 diabetes wnl01/[address] Mccloud is wnl02/2019 wnl no DM changes Dr Mccloud Hx of bone Hx of bone Disease Active 2015-08 Overview : Leslie density density 0-05/2016 L Metho di study study 00:00: hip -0.7 st 00 and spine not done Dr Lombardi Gastroesop Gastroesop Disease Active H dhruv hageal hageal 4-14 Methodi reflux reflux 00:00: st disease disease 00 Hyperhidro Hyperhidro Disease Active H dhruv sis sis 4-14 Methodi 00:00: st 00 Insomnia Insomnia Disease Active [place] 4-14 Methodi 00:00: st 00 Restless Restless Disease Active [place] legs legs 4-14 Methodi syndrome syndrome 00:00: st 00 Iron Iron Disease Active Travis deficiency deficiency 9-10 Me thodi 00:00: st 00 Arthritis Arthritis Disease Active 2011-08 Adams ston 0 Methodi 00:00: st 00 Cough Cough Disease Active 2011-08 Travis 0 Methodi 00:00: st 00 HLD HLD Disease Active 2011-08 Overview: Nurys n (hyperlipi (hyperlipi 0 Overview: Methodi demia) demia) 00:00: SNOMED/IM [place] 00 [place] [id number] Hypertensi Hypertensi Disease Active 2011-08 Overview : Leslie on on Overview: Methodi 00:00: Evaluatio st [address] Landers 08/2014 echo with HTN heart disease, RBBB, left ventricul ar outflow gradient without obstructi on, mild LVH, small pericardi al effusion Hypothyroi Hypothyroi Disease Active 2011-08 Overview : Leslie dism dism Overview: Methodi 00:00: 09/2015 st 00 add 30mg of armour to her 120mg Type 2 Type 2 Disease Active 2011-08 Leslie diabetes diabetes Method i mellitus mellitus 00:00: st without without 00 complicati complicati on, with on, with long-term long-term current current use of use of insulin insulin Ulcerative Ulcerative Disease Active 2011-08 Overview : Leslie colitis colitis Overview: Metho di 00:00: Dr. Hart for considera tion Dr. [place] Mixon History of History of Problem Resolve [facility] asthma asthma d ity of [place] [facility] History of History of Problem Resolve [facility] depression depression d it y of [place] [facility] History of History of Problem Resolve [facility] diabetes diabetes d ity of mellitus mellitus [place] [facility] History of History of Problem Resolve Univers immunodefi immunodefi d it y of ciency ciency [place] [facility] History of History of Problem Resolve Univers restless restless d ity of legs legs [place] syndrome syndrome Physic i ans History of History of Problem Resolve Univers thyroid thyroid d ity of disorder disorder [place] [facility] Abnormal Abnormal Problem Active Unive rs breathing breathing ity of [place] [facility] Esophagiti Esophagiti Problem Active U nivers s s ity of [place] [facility] Scoliosis Scoliosis Problem Active Uni vers ity of [place] [facility] Hiatal Hiatal Problem Active Univers hernia hernia ity of [place] [facility] Peristomal Peristomal Problem Active U nivers hernia hernia ity of [place] [facility] Obstructiv Obstructiv Problem Active U nivers e sleep e sleep ity of apnea, apnea, [place] adult adult Physici ans Abdominal Abdominal Problem Active Uni vers pain pain ity of [place] [facility] H/O total H/O total Problem Active Uni vers colectomy colectomy ity of [place] [facility] ans Allergies, Adverse Reactions, Alerts Allergy Allergy Status Severity Reaction(s) Onset Inactive Treating Comm ents Source Name Type Date Date Clinician Liraglut Propensi Active Stomach [place] lexus ty to 1-08 pain Methodi adverse 00:00: st reaction 00 s to drug Dulaglut Propensi Active abdominal Adams ston lexus ty to 5-08 pain Methodi adverse 00:00: st reaction 00 s to drug Adhesive Propensi Active [place] ty to 12-09 Methodi adverse 00:00: st reaction 00 s to drug Ferumoxy Propensi Active [place] barbi ty to 12-09 Methodi adverse 00:00: st reaction 00 s to drug [facility] adverse 00:00: st reaction 00 s to drug Sulfa Propensi Active Leslie (Sulfona ty to 12-09 Methodi mide adverse 00:00: st Antibiot reaction 00 ics) s to drug Tetanus Propensi Active Leslie Toxoid ty to 12-09 Methodi Adsorbed adverse 00:00: st reaction 00 s to drug Adhesive Allergy Active Univers Tape to drug ity of TAPE (finding [place] ) Physici ans Penicill Allergy Active Univers ins to drug ity of (finding [place] ) Physici ans sulfa Allergy Active Univers to drug ity of ([facility] ) Physici ans TETANUS Allergy Active Univers to drug ity of ([facility] ) Physici ans Family History Family Member Diagnosis Comments Start Date Stop Date Source Father Family history of Univers ity of malignant neoplasm [place] [facility] Father Family history of [facility] ity of cardiac disorder [place] [facility] Natural daughter Crohn's disease Adams ston [facility] Natural father Cancer Leslie [facility] Natural father Heart disease Leslie [facility] Maternal Colon cancer Leslie grandfather [facility] Maternal Diabetes Leslie grandfather [facility] Natural mother Hypertension Leslie [facility] Natural mother Kidney disease [place] [facility] Natural mother Osteoporosis Leslie [facility] Natural mother Rheumatologic disease [place] [facility] Natural mother Scoliosis Leslie [facility] Natural sister Hyperlipidemia [place] [facility] Natural sister Hypertension Leslie [facility] Natural son Ulcerative colitis [place] [facility] Social History Social Habit Start Date Stop Date Quantity Comments Source Sex Assigned At [facility] ethodist Cigarettes smoked 2019-12-16 2019-12-16 Travis Rich current (pack per 00:00:00 00:00:00 day) - Reported Cigarette 2019-12-16 2019-12-16 Leslie Eldon ist pack-years 00:00:00 00:00:00 Alcohol intake 2019-12-16 2019-12-16 Current Leslie Me thodist 00:00:00 00:00:00 non-drinker of alcohol (finding) History of tobacco 1967-08-26 1978-11-26 Current smoker Sanchez sheffield [facility] use 00:00:00 00:00:00 Smoking Status Start Date Stop Date Source Former smoker 2019-12-16 00:00:00 2019-12-16 00:00:00 [place] [facility] Medications Ordered Filled Start Stop Current Ordering Indication Dosage Frequency Signature Comments Components Source Medication Medication Date Date Medication? Clinician (SIG) Name Name levothyroxi 2020- Yes 100ug QD Take 1 Ho y[place]annes ne 5-24 05-24 tablet Methodi (Synthroid) 00:00: 23:59 (100 mcg s t 100 mcg 00 :00 total) by tablet mouth daily. triamterene Yes Essential Every [facility] 4-20 hypertensio other day Methodi othiazid 00:00: n st (MAXZIDE- ) 37.5-25 mg per tablet Tradjenta 5 Yes Type 2 TAKE 1 [place] mg tablet 4-18 diabetes TABLET BY Betsey coulter 00:00: mellitus MOUTH st 00 without EVERY DAY complicatio WITH n, with BREAKFAST long-term current use of insulin ([facility]) blood sugar Yes Type 2 CHECK Adams lang diagnostic 4-17 diabetes BLOOD Meth maurizio strips 00:00: mellitus SUGAR st (OneTouch 00 without TWICE PER Ultra Test) complicatio DAY strip test n, with strips long-term current use of insulin ([facility]) rosuvastati Yes TAKE 1 [place] (CRESTOR) 3-01 TABLET BY hodi 10 MG 00:00: MOUTH st tablet 00 EVERY DAY diclofenac 2019- Yes Apply one Sanchez sheffield (VOLTAREN) 2-26 gram to Method i 1 % gel 00:00: affected st 00 area 4 times daily multivitami 2019-0 Yes 1{tbl} QD Take 1 [place] 2-05 tablet by Isabel (THERAGRAN) 11:32: mouth st tablet 22 daily. biotin 1 mg 2019-0 Yes QD Take by Adams ston capsule 2-05 mouth Methodi 11:32: daily. st 22 cholecalcif 2020-0 Yes 2000U QD Take 2,000 Leslie mynor, 2-05 Units by Methodi vitamin D3, 11:32: mouth st (VITAMIN 22 daily. D3) 1,000 unit capsule calcium 2020-0 Yes 1{tbl} Q.5D Take 1 [place] citrate-vit 2-05 tablet by Met rogers craven D3 11:32: mouth 2 st (CITRACAL+D 22 (two) ) 315-200 times a mg-unit per day. tablet coenzyme 2020-0 Yes 200mg QD Take 200 [place] Q10 200 mg 2-05 mg by Methodi capsule 11:32: mouth st 22 daily. B 2020-0 Yes Take by [place] INFANTIS/B 2-05 mouth. Methodi ANI/B WENDY/B 11:32: st BIFID 22 (PROBIOTIC 4X ORAL) albuterol 2020- No 2{puff} Q6H Inhale 2 Leslie (PROAIR 2-05 02-05 puffs Methodi HFA) 90 11:31: 00:[address] mcg/actuati 02 :00 (six) on inhaler hours as needed for wheezing. cefdinir 2020- No Bladder 300mg Q.5D Take 1 [place] (OMNICEF) 2-05 02-12 infection capsule M ethodi 300 MG 00:00: 23:59 ([address] capsule 00 :00 total) by mouth 2 (two) times a day for 7 days. HYDROcodone 2018-08 2019- No chronic chronic Leslie -acetaminop 09-17 12-21 pain pain. 1 po M ethodi hen (NORCO) 00:00: 23:[address] 10-325 mg 00 :00 prn per tablet chronic pain pantoprazol 2018-08 Yes 40mg Q.5D Take 1 [place] 1-17 tablet (40 Methodi (PROTONIX) 00:00: mg total) st 40 MG EC 00 by mouth 2 tablet (two) times a day. potassium 2018-08 Yes 1 po every [place] chloride 1-17 other day Method i (K-DUR) 10 00:00: st MEQ CR 00 tablet triamterene 2018-08 2020- No 1{tbl} QD Take 1 [place] -hydrochlor 1-17 04-20 tablet by Me oh griffith 00:00: 00:[address] (MAXZIDE-25 00 :00 daily. ) 37.5-25 mg per tablet pantoprazol 2018-08- No 40mg QD Take 40 mg Robles e 09-1215 by mouth Methodi (PROTONIX) 13:50: 00:[address] 40 MG EC 13 :00 tablet pantoprazol 2018-08- No TAKE 1 Adams lang e 09-12 TABLET BY Methodi (PROTONIX) 00:00: 00:[address] 40 MG EC 00 :00 TWICE A tablet DAY pramipexole 2018-08- No 1mg Q.5D Take 1 mg Travis (MIRAPEX) 09-09 by mouth 2 Met hodi 0.5 MG 18:53: 00:00 (two) st tablet 08 :00 times a day. Takes 1 tab in the morning and 2 tabs at night ondansetron 2018-08 Yes 4mg Q8H Take 1 [place] (ZOFRAN) 4 09-09 tablet (4 Meth maurizio MG tablet 00:00: mg total) st 00 by mouth every 8 (eight) hours as needed for nausea or vomiting. pramipexole 2018-08- No 1mg Q.[id number] Take 1 [place] (MIRAPEX) 09-09 [id number] tablet (1 Methodi MG tablet 00:00: 23:59 3D mg total) st 00 :00 by mouth 3 (three) times a day. levothyroxi 2018-08- No 125ug QD Take 1 [place] ne 0-26 05-24 tablet Methodi (SYNTHROID) 00:00: 00:00 (125 mcg s t 125 mcg 00 :00 total) by tablet mouth daily. potassium 2018-08- No 10meq QD Take 1 [place] chloride 0-26 -17 tablet (10 Meth maurizio (K-DUR) 10 00:00: 00:00 mEq total) st MEQ CR 00 :00 by mouth tablet daily. metoprolol Yes TAKE 1 [place] succinate 9-22 TABLET BY Metho di XL 00:00: MOUTH st (TOPROL-XL) 00 EVERY DAY 25 mg 24 hr (DISCONTIN tablet UE 50MG) acetaminoph 2019- No chronic 1{tbl} Q4H Take 1-2 Leslie en-codeine 8-30 02-05 pain tablets by [place] [place] (TYLENOL 00:00: 00:[address] WITH 00 :00 every 4 CODEINE #3) (four) 300-30 mg hours as per tablet needed for moderate pain for up to 180 days .Acute Pain, chronic pain. acetaminoph 2018- No chronic 1{tbl} Q4H Take 1-2 Leslie en-codeine 8-30 08-30 pain tablets by [place] [place] (TYLENOL 00:00: 00:[address] WITH 00 :00 every 4 CODEINE #3) (four) 300-30 mg hours as per tablet needed for moderate pain for up to 180 days .Acute Pain, chronic pain. fluticasone 2018- No 2{spray QD 2 sprays Leslie (FLONASE) 04-10 } by Each Method i 50 15:16: 00:[address] mcg/actuati 51 :00 daily. on nasal spray metFORMIN Yes Type 2 2 po bid Ho y[place]annes (GLUCOPHAGE 04-10 diabetes Meth maurizio ) 500 mg 00:00: mellitus st tablet 00 without complicatio n, with long-term current use of insulin ([facility]) moxifloxaci 2018- No 1[drp] Q.[id number] Administer Leslie n (VIGAMOX) 01-14 05-27 [id number] 1 drop to Methodi 0.5 % 00:00: 23:[address] ophthalmic 00 :00 3 (three) solution times a day for 7 days. levothyroxi 2018- No 137ug QD Take 137 Leslie ne 01-13 10-26 mcg by Methodi (SYNTHROID) 00:00: 00:[address] 137 mcg 00 :00 daily. tablet potassium 10meq QD Take 1 [place] chloride 01-13 tablet (10 Meth maurizio (K-DUR,KLOR 00:00: 00:00 mEq total) st -CON) 10 00 :00 by mouth MEQ CR daily. tablet ranitidine 2019- No 300mg QD Take 1 [facility] ston (ZANTAC) 01-02 02-05 tablet Methodi 300 MG 00:00: 00:00 ([address] tablet 00 :00 total) by mouth nightly. metFORMIN 2018- No Type 2 500mg Q.5D Take 1 [place] (GLUCOPHAGE 01-02 08-14 diabetes tablet M ethodi ) 500 mg 00:00: 00:00 mellitus (500 mg s t tablet 00 :00 without total) by complicatio mouth 2 n, with (two) long-term times a current use day with of insulin meals. (HCC) triamterene 2018- No TAKE 1 Adams ston -hydrochlor 12-24-17 TABLET BY thodi othiazid 00:00: 00:[address] (MAXZIDE-25 00 :00 EVERY DAY ) 37.5-25 mg per tablet linagliptin 2019- No Type 2 5mg QD Take 1 [place] (TRADJENTA) 11-28 04-18 diabetes tablet (5 Methodi 5 mg tablet 00:00: 00:00 mellitus mg total) st 00 :00 without by mouth complicatio daily with n, with breakfast. long-term current use of insulin ([facility]) rosuvastati 2019- No TAKE 1 [place] ston n (CRESTOR) 3-13 - TABLET BY thodi 10 MG 00:00: 00:[address] tablet 00 :00 EVERY DAY metFORMIN metFORMIN Yes Uni vers HCl ER HCl ER 2-05 ity of (MOD) 500 (MOD) 500 00:00: Dajuan as MG Oral MG Oral 00 Physici Tablet Tablet ans Extended Extended Release 24 Release 24 Hour Hour metoprolol 2017-08- No TAKE 1 [place] succinate 09-22- TABLET BY Meth maurizio XL 00:00: 00:[address] (TOPROL-XL) 00 :00 EVERY DAY 25 mg 24 hr (DISCONTIN tablet UE 50MG) citalopram 2016-08 Yes 40mg QD Take 1 [place] (CeleXA) 40 2-22 tablet (40 Me thodi MG tablet 00:00: mg total) st 00 by mouth nightly. TAKE 1 TABLET EVERY DAY buPROPion Yes 150mg QD Take 150 Adams ston SR 7-31 mg by Methodi (WELLBUTRIN 00:00: mouth st SR) 150 MG 00 every 12 hr morning. tablet lidocaine 2015-08 2019- No apply 1-2 [place] (XYLOCAINE) 1-15 08-14 grams TO Met hodi 5 % 00:00: 00:[address] ointment 00 :00 AREAS FOUR TIMES DAILY, apply in combinatio n WITH topical PAIN cream (USE last) ONETOUCH 2015-08 2020- No CHECK [place] ULTRA TEST 12 04-17 TWICE PER Met hodi strip test 00:00: 00:[address] strips 00 :00 ALPRAZolam 2015-08 Yes .5mg QD Take 0.5 Adams ston (XANAX) 0.5 1-10 mg by Methodi MG tablet 00:00: mouth st 00 nightly. AMPHETAMINE Yes 30mg QD 30 mg [place] -DEXTROAMPH 5-18 every Methodi ETAMINE 20 00:00: morning. st MG tablet 00 montelukast Yes 10mg QD Take 10 mg [place] (SINGULAIR) 4-08 by mouth Meth maurizio 10 mg 00:00: nightly. st tablet 00 HYDROcodone 2007-08 Yes [place] -acetaminop 0-22 Methodi hen (NORCO) 00:00: st 5-325 mg 00 per tablet Protonix 40 Protonix 40 Yes U nivers MG Oral MG Oral ity of Packet Packet [facility] ans Biotin TABS Biotin TABS Yes U nivers ity of [facility] ans Vitamin D Vitamin D Yes Unive rs TABS TABS ity of [facility] ans Victoza 18 Victoza 18 Yes Uni vers MG/3ML MG/3ML ity of Subcutaneou Subcutaneou [place] s Solution s Solution Phy sici Pen-injecto Pen-injecto a ns r r Mirapex 0.5 Mirapex 0.5 Yes U nivers MG Oral MG Oral ity of Tablet Tablet [facility] ans Adderall 30 Adderall 30 Yes U nivers MG Oral MG Oral ity of Tablet Tablet [facility] ans Maxzide-25 Maxzide-25 Yes Uni vers [facility] Wellbutrin Wellbutrin Yes Uni vers TABS TABS [facility] ans Citracal + Citracal + Yes Uni vers D TABS D TABS ity of [place] [facility] ans Synthroid Synthroid Yes Unive rs 150 MCG 150 MCG ity of Oral Tablet Oral Tablet [place] [facility] Multi-Vitam Multi-Vitam Yes U nivers ins TABS ins TABS ity of [place] [facility] ans CeleXA 40 CeleXA 40 Yes Unive rs MG Oral MG Oral ity of Tablet Tablet [place] [facility] Singulair Singulair Yes Unive rs 10 MG Oral 10 MG Oral ity of Tablet Tablet [place] [facility] Xanax 0.5 Xanax 0.5 Yes Unive rs MG Oral MG Oral ity of Tablet Tablet [place] [facility] ans HYDROcodone HYDROcodone Yes U nivers -Acetaminop -Acetaminop i ty of hen TABS hen TABS [place] [facility] Fioricet Fioricet Yes Univers 50-325-40 50-325-40 ity o f MG TABS MG TABS [place] [facility] ProAir HFA ProAir HFA Yes Uni vers 108 (90 108 (90 ity of Base) Base) [place] MCG/ACT MCG/ACT Physici Inhalation Inhalation ans Aerosol Aerosol Solution Solution CoQ10 CAPS CoQ10 CAPS Yes Uni vers ity of [place] [facility] ans Immunizations Ordered Immunization Filled Immunization Date Status Commen ts Source Name Name Pneumococcal 2019-10-02 Completed Leslie Polysaccharide 00:00:00 [facility] FLUZONE HIGH-DOSE PF 2019-05-24 Completed [place] 00:00:00 [facility] FLUZONE QUAD 2018-05-14 Completed Leslie 00:00:00 [facility] Pneumococcal 2017-07-10 Completed Leslie Conjugate 13-Valent 00:00:00 Metho dist FLUZONE HIGH-DOSE PF 2017-05-24 Completed [place] 00:00:00 [facility] Influenza Whole 2016-05-22 Completed Leslie 00:00:00 [facility] Influenza Whole 2015-06-04 Completed Leslie 00:00:00 [facility] Influenza Trivalent 2011-05-18 [facility] Vital Signs Vital Name Observation Time Observation Value Comments Source Systolic blood 2019-12-16 130 mm[Hg] Leslie pressure 15:41:00 [facility] Diastolic blood 2019-12-16 74 mm[Hg] Leslie pressure 15:41:00 [facility] Respiratory rate 2019-12-16 16 /min Leslie 15:41:00 [facility] Body height 2019-12-16 161.3 cm Leslie 15:41:00 [facility] Body weight 2019-12-16 74.844 kg Leslie 15:41:00 [facility] BMI 2019-12-16 28.77 kg/m2 Leslie 15:41:00 [facility] Heart rate 2019-10-02 86 /min Leslie 11:28:00 [facility] Oxygen saturation 2019-10-02 95 /min Leslie in Arterial blood 11:28:00 [facility] by Pulse oximetry Body temperature 2019-02-04 36.61 Joan Leslie 11:13:00 [facility] BP Systolic 2018-10-02 144 mm[Hg] Location: [facility]; [facility] 13:36:00 Position: [place] [facility] BP Diastolic 2018-10-02 78 mm[Hg] [facility] Position: [place] [facility] Height 2018-10-02 63.5 [in_us] [facility] of 13:36:00 [place] [facility] Weight 2018-10-02 199 [lb_av] University of 13:36:00 [place] [facility] Body Mass Index 2018-10-02 34.7 kg/m2 University o f Calculated 13:36:00 [place] [facility] Temperature 2018-10-02 98.6 [degF] Method: Oral University of 13:36:00 [place] [facility] Heart Rate 2018-10-02 91 /min University of 13:36:00 [place] [facility] BP Systolic 2018-09-04 145 mm[Hg] Location: [facility]; [facility] 13:35:00 Position: [place] [facility] Sitting BP Diastolic 2018-09-04 77 mm[Hg] Location: [facility]; [facility] 13:35:00 Position: [place] [facility] Sitting Height 2018-09-04 63.5 [in_us] University of 13:35:00 [place] [facility] Weight 2018-09-04 201 [lb_av] University of 13:35:00 [place] [facility] Body Mass Index 2018-09-04 35.05 kg/m2 University o f Calculated 13:35:00 [place] [facility] Temperature 2018-09-04 97.9 [degF] Method: Oral University of 13:35:00 [place] [facility] Heart Rate 2018-09-04 97 /min University of 13:35:00 [place] [facility] BP Systolic 2018-08-09 147 mm[Hg] Location: [facility]; [facility] 11:31:00 Position: [place] [facility] Sitting BP Diastolic 2018-08-09 76 mm[Hg] Location: [facility]; [place] of 11:31:00 Position: [place] [facility] Sitting Height 2018-08-09 63.5 [in_us] University of 11:31:00 [place] [facility] Weight 2018-08-09 200.3125 [lb_av] University 11:31:00 [place] [facility] Body Mass Index 2018-08-09 34.93 kg/m2 University o f Calculated 11:31:00 [place] [facility] Temperature 2018-08-09 98.2 [degF] Method: Oral University of 11:31:00 [place] [facility] Heart Rate 2018-08-09 96 /min University 11:31:00 [place] [facility] BP Systolic 2018-08-01 140 mm[Hg] Position: University 16:06:00 Sitting [place] [facility] BP Diastolic 2018-08-01 81 mm[Hg] Position: University 16:06:00 Sitting [place] [facility] Height 2018-08-01 65 [in_us] University 16:06:00 [place] [facility] Weight 2018-08-01 196 [lb_av] University 16:06:00 [place] [facility] Body Mass Index 2018-08-01 32.62 kg/m2 University o f Calculated 16:06:00 [place] [facility] Temperature 2018-08-01 97.7 [degF] Method: Oral University 16:06:00 [place] [facility] Heart Rate 2018-08-01 98 /min [facility] 16:06:00 [place] [facility] Procedures Procedure Date / Time Performing Clinician Source Performed XR LEG LENGTH EVALUATION 2019-10-23 15:08:20 Travis Sierra XR KNEE 3 VW RIGHT 2019-10-23 15:07:46 Travis Sierra MRI PELVIS W WO CONTRAST 2019-09-25 12:03:00 Aris Meehan POC CREATININE 2019-09-25 10:44:00 rAis Meehan Met tanisha ESTIMATED GFR 2019-09-25 10:44:00 Aris Meehan Met tanisha XR FOOT 3+ VW RIGHT 2019-04-23 14:58:42 Darvin Mendez XR ANKLE 3+ VW RIGHT 2019-04-23 14:58:09 Darvin Mendez XR CALCANEUS 2+ VW RIGHT 2019-04-23 14:57:40 Darvin Mendez MRI CHEST WO CONTRAST 2019-04-19 15:02:16 Pepe Elder [place] Stomach emptying [id number] 2018-09-05 [facility] Physicians [B] UPPER GI W/AIR 2018-09-05 00:00:00 [facility] Physicians History of Tonsillectomy [facility] With Adenoidectomy Physicians History of Tubal ligation [facility] bilateral Physicians History of [facility]olecyst[facility] Physicians History of Hysterectomy [facility] total vaginal with removal Physi cians of both ovaries History of Colectomy [facility] Physicians History of Hernia Repair [facility] Physicians History of [employer] Hemorrhoidectomy Physicians History of Mohs surgery [facility] Physicians History of Decompression [facility] of spinal cord Physicians History of Spinal Surgery [facility] - Allograft Physicians History of Achilles tendon Unive [facility] surgery Physicians History of Paraesophageal [facility] hiatal hernia repair Physicians Plan of Care Planned Activity Planned Date Details Comments Source Future Scheduled 2024-08-22 COLONOSCOPY [facility] hodist Test 00:00:00 SCREENING [code = COLONOSCOPY SCREENING] Future Scheduled 2021-08-19 BREAST CANCER [facility] thodist Test 00:00:00 SCREENING [code = BREAST CANCER SCREENING] Future Scheduled 2021-03-15 DIABETIC RETINAL EYE [facility] Test 00:00:00 EXAM [code = DIABETIC RETINAL EYE EXAM] Future Scheduled 2020-03-28 INFLUENZA VACCINE Nurys n [facility] Test 00:00:00 [code = INFLUENZA VACCINE] Diagnostic Test 2018-09-05 NM Stomach emptying [facility] Pending 00:00:00 [id number] [code = 47628] Physici ans Diagnostic Test 2018-09-05 [B] UPPER GI W/AIR [facility] Pending 00:00:00 [code = [B] UPPER GI Physici ans W/AIR] Future Scheduled 2017-09-07 DIABETIC FOOT EXAM Jonelt on [facility] Test 00:00:00 [code = DIABETIC FOOT EXAM] Future Scheduled 2001 SHINGLES VACCINES Jonelto n [facility] Test 00:00:00 (#1) [code = SHINGLES VACCINES (#1)] Encounters Start End Encounter Admission Attending Care Care Encounter Source Date/Time Date/Time Type Type Clinicians Facility Department ID 2019-12-16 2019-12-17 Outpatient MARIA ANTONIA, [facility] [id number] 00:00:00 00:00:00 CHALINO Ofelia [facility] [address] [facility] 2019-10-23 2019-10-23 Outpatient HAILY, [facility] [id number] 00:00:00 00:00:00 TRAVIS [address] 2019-10-23 2019-10-23 Outpatient HAILY, [facility] [id number] 00:00:00 00:00:00 TRAVIS [address] 2019-10-23 2019-10-23 Outpatient HAILY, [facility] [id number] 00:00:00 00:00:00 TRAVIS [address] 2019-09-25 2019-09-25 Outpatient ZORAN, [facility] [id number] 00:00:00 00:00:[address] 2018-10-02 2018-10-02 PATRICIA Mallory [id number] [facility] 12:30:00 12:30:00 t; KARLY QUINTERO M.D. Surgery Sunni M.D. Specialty [facility] Physici ans 2018-09-12 2018-09-12 PATRICIA Mallory [id number] [facility] 10:15:00 10:15:00 t; KARLY QUINTERO M.D. [facility] [place], M.[facility]. [place] [facility] ans 2018-09-04 2018-09-04 PATRICIA Mallory [id number] [facility] 12:45:00 12:45:00 t; KARLY QUINTERO M.D. Surgery Sunni M.D. Special[facility] Physici ans 2018-08-07 2018-08-07 PATRICIA Mallory [id number] [facility] 15:30:00 15:30:00 t; KARLY QUINTERO M.D. Surgery Sunni M.D. Specialty [facility] Physici ans 2018-08-01 2018-08-01 PATRICIA Streeter O[facility]olar [id number] [facility] 15:30:00 15:30:00 august; Anshul MUNGUIA yngology - ity of [facility] Evert MUNGUIA M.D. Center ans Results Test Description Test Time Test Comments Results Result Sourc e Comments MRI Pelvis W Wo 2019-08-29 Nurys [place] n Contrast [address] 12:53:44 - 09/25/2019 12:56 PM CSTEXAMINATION: MRI PELVIS W WO CONTRASTCLINICAL HISTORY: D17.23 Benign lipomatous neoplasm of skin and subcutaneous tissue of right leg, right gluteal soft tissue abnormality rule out lipomaTECHNIQUE: Multiplanar, multisequence MR imaging examination of the pelvis obtained prior to and following gadolinium IV contrast.COMPARISON: CT pelvis 09/07/2016 IMPRESSION:1.Skin marker indicating the area of concern along the posterolateral aspect of the right buttock. There is copious subjacent adipose tissue, though no discrete lipoma or other abnormality is identified.2.An equivocal lipoma is noted more posterior, and approximately 10 cm cranial to the skin marker, in the deep subcutaneous fat immediately superficial to the lateral margin of the right gluteus janay measuring 8.0 x 3.5 cm, series 4 image 11, and series 11 image 10. However, this could simply represent a prominent lobule of subcutaneous fat. No soft tissue component is identified to indicate atypia.3.The visualized musculature appears well-maintained. 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 Hysterectomy.5.Cystic formation in the left acetabular roof due to moderate left hip OA. Postop change within the lumbar spine partially seen.6.No free fluid identified within the pelvis.7.A mildly enlarged right external iliac chain lymph node measuring 14 mm is not significant changed from CT of 09/07/2016. No new lymphadenopathy is identified. SUMMARY:No lipoma or other soft tissue mass or lesion corresponding to the skin marker. An equivocal lipoma more proximally as detailed above, may simply represent prominent subcutaneous fat. No suspicious finding is identified.Incidental findings as above. [id number] POC creatinine 2019-09-25 10:45:40 Test Item Value Reference Range Interpretation Comme nts POC creatinine (test code = 0.9 mg/dl 0.5-0.9 Knifer Up Name: Jayce [id number]) CossieDevice ID : [id number] [place] [facility] [id number] 10:45:40 Test Item Value Reference Range Interpretation Comments Estimated GFR (test 66 mL/min/1.73 m2 [facility] Units code = 62426-5) Interpretati onG1 >=90 Normal or highG2 60-89 Mildly dyrtnaoirJ9g 45-59 Mildly to mode rately ytubrmvxcO6e 30-44 Moderately to severely decreasedG4 15-29 Severely decre asedG5 <15 Kidn ey failureThe eGFR was calculated usluigi g the Chronic Kidney Disease Epidemiology Co llaboration (CKD-EPI) equat ion. Interpretation is based on recommendations of the National Kidney Foundation-Kidn ey Disease Outcomes Qualit y Initiative (NKF-KDOQI) pub lished in 2014. [facility] [id number] 00:00:00 Test Item Value Reference Range Interpretation Comments REPORT (test code = REPORT) See Comment [facility] PhysiciansTobacco Use [id number] 15:30:00 Test Item Value Reference Range Interpretation Comments Completed (test code = Completed) DONE [facility] [employer] [place] [facility]
[2020-01-21] MEDS ORDERED: LIDOCAINE 1% MPF 30 ML VIAL ONE (11:39)
[2020-01-21] MEDS ORDERED: HEPARIN 500 UNIT/5 ML SYR IV ONE (11:56)
[2020-01-21 12:44] VITALS: BP 125/66; TEMP 97.3; O2SAT 100
[2020-01-21 12:45] VITALS: BMI 29.5
== END 2020-01-21 12:20 | disposition home or self-care (01) ==
LOC: DS 11:15
PROVIDERS: ATTEND Internal Medicine Gastroenterology
DX: Z45.2 Encounter for adjustment and management of vascular access device (principal)
CPT/HCPCS: 96523; J1642

== ENCOUNTER 2020-06-09 11:07 | Day surgery (SDC) | payer OTHER ==
--- OUTSIDE RECORDS SUMMARY | 2020-06-09 11:09 | XMS REPORT | Clinical Summary ---
:1950 Author Organization [facility] Address [address] [place] [address] Care Team Providers Name Role Phone Kasandra Epperson MD Primary Care Provider Allergies Active [...] 100 2 Overview: SNOMED/[place] [id number] GERD (gastroesophageal reflux disease) Restless leg syndrome Hyperhidrosis Insomnia Immunizations Name Administration Dates Next Due Influenza TIV (IM) 05/18/2011 Influenza [...] Not on file Last Filed Vital Signs Not on file Plan of Treatment Not on file Results Not on fileafter 06/09/2019 Insurance Payer Benefit Plan / Subscriber ID Effective Dates Phone Addre ss Type Group [employer] - MGD CARE AET[employer] PPO OPEN [facility] [id number] 2015-Present PPO NAP
--- OUTSIDE RECORDS SUMMARY | 2020-06-09 11:10 | XMS REPORT | Continuity of Care Document ---
:1950 Author Organization [facility] t Address [address] [place] [address] Care Team Providers Name Role Phone Kasandra Epperson MD Primary Care Physician MARIA ANTONIA Attending Clinician Unavailable OANH Attending Clinician Unavailable JEFF Attending Clinician Unavailable HAILY Attending Clinician Unavailable DAVID Attending Clinician Unavailable LEON Attending Clinician Unavailable BEN Attending Clinician Unavailable Problems Condition Condition Condition Status Onset Resolution Last Treating Co mments Source Name Details Category Date Date Treatment Clinician Date Iron Iron Disease Active [facility] deficiency deficiency 9-10 [facility] - 00:00: Medical 00 [place] Ulcerative Ulcerative Disease Active 2011-08 Overview : [facility] colitis colitis 0- Dr. Hailey Talley - 00:00: for Medical [address] [place] [address] [place] Mixon Impaired Impaired Disease Active 2011-08 [facility] fasting fasting 0 [facility] - glucose glucose 00:00: Medical 00 [place] Hypothyroi Hypothyroi Disease Active 2011-08 Overview : [facility] dism dism 0-09/2015 [facility] - 00:00: add 30mg [facility] to her 120mg Cough Cough Disease Active 2011-[address] 0- [facility] - 00:00: Medical 00 [place] Arthritis Arthritis Disease Active 2011-[address] 0-26 [facility] - 00:00: Medical 00 [place] Hypertensi Hypertensi Disease Active 2011-08 Overview : [facility] on on - Evaluatio Lu - 00:00: n [address] 08/2014 echo with HTN heart disease, RBBB, left ventricul ar outflow gradient without obstructi on, mild LVH, small pericardi al effusion Hyperlipid Hyperlipid Disease Active 2011-08 Overview : [facility] emia with emia with 0-26 SNOMED/IM L ukes - target LDL target LDL 00:00: O Me dical less than less than 00 Diagnosis C enter 100 [address] [place] [id number] History of History of Problem Resolve Univers asthma asthma d ity of [place] [facility] History of History of Problem Resolve [facility] depression depression d it y of [place] [facility] History of History of Problem Resolve Univers diabetes diabetes d ity of mellitus mellitus [place] [facility] History of History of Problem Resolve Univers immunodefi immunodefi d it y of ciency ciency [place] [facility] History of History of Problem Resolve Univers restless restless d ity of legs legs [place] syndrome syndrome Physic i ans History of History of Problem Resolve Univers thyroid thyroid d ity of disorder disorder [place] [facility] Abnormal Abnormal Problem Active Unive rs breathing breathing ity of [place] [facility] Esophagiti Esophagiti Problem Active U nivers s s ity of [place] [facility] Scoliosis Scoliosis Problem Active Uni vers ity of [place] [facility] Hiatal Hiatal Problem Active Univers hernia hernia ity of [place] [facility] Peristomal Peristomal Problem Active U nivers hernia hernia ity of [place] [facility] Obstructiv Obstructiv Problem Active U nivers e sleep e sleep ity of apnea, apnea, [place] adult adult Physici ans Abdominal Abdominal Problem Active Uni vers pain pain ity of [place] [facility] H/O total H/O total Problem Active Uni vers colectomy colectomy ity of [place] [facility] GERD GERD Disease Active [facility] (gastroeso (gastroeso [facility] [facility] disease) disease) Restless Restless Disease Active [facility] leg leg [facility] - syndrome syndrome Medica l Center Hyperhidro Hyperhidro Disease Active C [facility] Insomnia Insomnia Disease Active [facility] Allergies, Adverse Reactions, Alerts Allergy Allergy Status Severity Reaction(s) Onset Inactive Treating Comm ents Source Name Type Date Date Clinician Adhesive Allergy Active Univers Tape to drug ity of TAPE (finding [place] ) Physici ans Penicill Allergy Active Univers ins to drug ity of (finding [place] ) Physici ans sulfa Allergy Active Univers to drug ity of (finding [place] ) Physici ans TETANUS Allergy Active Univers to drug ity of (finding [place] ) Physici ans Adhesive Drug Active [facility] Ferumoxy Drug Active [facility] barbi [facility] Penicill Drug Active [facility] ins [facility] Predniso Propensi Active Anxiety severe [facility] ne ty to anxiety [facility] - adverse and Medical reaction insomnia Center s Sulfa Drug Active [facility] (Sulfona Allergy [facility] Antibiot Center ics) Tetanus Drug Active [facility] Toxoid [facility] Family History Family Member Diagnosis Comments Start Date Stop Date Source Father Family history of Univers ity of malignant [place] [facility] neoplasm Father Family history of Univers ity of cardiac disorder [place] [facility] Natural father [facility] Natural father Coronary artery [facility] S [facility] Maternal grandfather Coronary artery [facility] Maternal grandfather Drug abuse [facility] Paternal grandfather Coronary artery [facility] Social History Social Habit Start Date Stop Date Quantity Comments Source Sex Assigned At [facility] Alcohol intake 2015-09-14 2015-09-14 Current [facility] - 00:00:00 00:00:00 non-drinker of Medical Ce nter alcohol (finding) History of 1988-08-28 Current smoker [facility] - tobacco use 00:00:00 Medical Cente r Smoking Status Start Date Stop Date Source Former smoker 2015-09-14 00:00:00 2015-09-14 00:00:00 [facility] Medications Ordered Filled Start Stop Current Ordering Indication Dosage Frequency Signature Comments Components Source Medication Medication Date Date Medication? Clinician (SIG) Name Name metFORMIN metFORMIN Yes Uni vers HCl ER HCl ER 2-05 ity of (MOD) 500 (MOD) 500 00:00: [place] as MG Oral MG Oral 00 Physici Tablet Tablet ans Extended Extended Release 24 Release 24 Hour Hour thyroid, Yes 120mg QD Take [address] pork, 120 1-18 tablet [facility] - mg Tab 00:00: (120 mg Medical 00 total) by Center mouth daily. ranitidine Yes 300mg QD Take [address] [facility] [address] (ZANTAC) 1-18 tablet [facility] - 300 MG 00:00: (300 mg Medical tablet 00 total) by Center mouth nightly. blood sugar 2014-08 Yes 1{strip Q.5D [address] diagnostic 09-19 } Miscellane Roger es - (ONE TOUCH) 00:00: ous route M edical Strp 00 2 (two) Center times daily. triamterene 2014-08 Yes 1{tbl} QD Take [address] -hydrochlor 0-09 tablet by Roger es - othiazide 00:00: mouth Medical (MAXZIDE-25 00 daily. Center ) 37.5-25 mg per tablet linagliptin 2014-08 Yes 5mg QD Take [address] (TRADJENTA) 0-02 tablet (5 Roger es - 5 mg Tab 00:00: mg total) Medi stone 00 by mouth Center daily. butalbital- Yes Take one [facility] acetaminoph 9-25 to 2 [facility] - en-caffeine 00:00: tablets Med ical (FIORICET, 00 every 6 Center ESGIC) hours as 50-325-40 needed for mg per headache. tablet esomeprazol Yes 40mg Take [address] e (NEXIUM) 8-03 by mouth [facility] - 40 MG 12:12: every Medical capsule 45 morning Center before breakfast. HYDROcodone Yes 1{tbl} Take [address] -acetaminop 8-03 tablet by Roger es - hen (NORCO) 12:12: mouth Medic al 5-325 mg 45 every 6 Center per tablet (six) hours as needed. Vitamin D Yes 1{capsu QD Take [address] 2,000 unit 8-03 le} capsule by Roger es - Cap 12:12: mouth Medical 45 daily. Center lisdexamfet Yes 50mg QD Take [address] amine 8-03 by mouth [facility] - (VYVANSE) 12:12: every Medical 70 MG 45 morning Pt Center capsule is taking 50 mg every morning.. buPROPion Yes 150mg QD Take [address] (WELLBUTRIN 8-03 mg by [facility] - XL) 150 MG 12:12: mouth Medica l 24 hr 45 daily. Center tablet multivitami Yes 1{tbl} QD Take [address] n tablet 8- tablet by [facility] - 12:12: mouth Medical 45 daily. [place] pramipexole Yes .75mg Q.[id number] Take 0.[address] (MIRAPEX) 8- [id number] mg by Roger es - 0.5 MG 12:12: 3D mouth 3 Medical tablet 45 (three) Center times daily. CALCIUM Yes Take by [facility] CARB/MAG 8- mouth. [facility] - OXIDE/VIT 12:12: Medical D3 (CALCIUM 45 Center MAGNESIUM + D ORAL) BIOTIN ORAL Yes QD Take by [facility] 8-03 mouth [facility] - 12:12: daily. Medical 45 [place] citalopram Yes TAKE 1 [facility] t (CELEXA) 40 6-10 TABLET [facility] - MG tablet 00:00: EVERY DAY Med ical 00 [place] metoprolol Yes TAKE 1 [facility] t (TOPROL-XL) 5-31 TABLET [facility] - 25 MG 24 hr 00:00: DAILY Medic al tablet 00 [place] CRESTOR 10 Yes TAKE 1 [facility] t mg tablet 5-01 TABLET BY [facility] - 00:00: MOUTH Medical 00 EVERY DAY [place] Protonix 40 Protonix 40 Yes U nivers MG Oral MG Oral ity of Packet Packet [place] [facility] Biotin TABS Biotin TABS Yes [facility] ans Vitamin D Vitamin D Yes Unive rs TABS TABS ity of [place] [facility] Victoza 18 Victoza 18 Yes Uni vers MG/3ML MG/3ML ity of Subcutaneou Subcutaneou [place] s Solution s Solution Phy sici Pen-injecto Pen-injecto a ns r r Mirapex 0.5 Mirapex 0.5 Yes U nivers MG Oral MG Oral ity of Tablet Tablet [place] [facility] Adderall 30 Adderall 30 Yes U nivers MG Oral MG Oral ity of Tablet Tablet [place] [facility] Maxzide-25 Maxzide-25 Yes Uni vers TABS TABS ity of [place] [facility] Wellbutrin Wellbutrin Yes Uni vers TABS TABS ity of [place] [facility] ans Citracal + Citracal + Yes Uni vers D TABS D TABS ity of [place] [facility] Synthroid Synthroid Yes Unive rs 150 MCG 150 MCG ity of Oral Tablet Oral Tablet [place] Physici ans Multi-Vitam Multi-Vitam Yes U nivers ins TABS ins TABS ity of [place] [facility]ici ans CeleXA 40 CeleXA 40 Yes Unive rs MG Oral MG Oral ity of Tablet Tablet [place] [facility] Singulair Singulair Yes Unive rs 10 MG Oral 10 MG Oral ity of Tablet Tablet [place] [facility] Xanax 0.5 Xanax 0.5 Yes Unive rs MG Oral MG Oral ity of Tablet Tablet [place] [facility] HYDROcodone HYDROcodone Yes U nivers -Acetaminop -Acetaminop i ty of hen TABS hen TABS [place] [facility] Fioricet Fioricet Yes Univers 50-325-40 50-325-40 ity o f MG TABS MG TABS [place] [facility] ProAir HFA ProAir HFA Yes Uni vers 108 (90 108 (90 ity of Base) Base) [place] MCG/ACT MCG/ACT Physici Inhalation Inhalation ans Aerosol Aerosol Solution Solution CoQ10 CAPS CoQ10 CAPS Yes Uni vers ity of [place] [facility] Immunizations Ordered Immunization Filled Immunization Date Status Commen ts Source Name Name Influenza Three-TIV 2015-06-04 Completed [facility] Talley - PF 4+YRS 00:00:00 Medica [facility] Influenza TIV (IM) 2011-05-18 Completed [facility]URA Watson - 00:00:00 Medical Center Vital Signs Vital Name Observation Time Observation Value Comments Source BP Systolic 2018-10-02 144 mm[Hg] Location: [facility] 13:36:00 Position: [place] [facility] Sitting BP Diastolic 2018-10-02 78 mm[Hg] Location: [facility] 13:36:00 Position: [place] [facility] Sitting Height 2018-10-02 63.5 [in_us] [facility] 13:36:00 [place] [facility] Weight 2018-10-02 199 [lb_av] [facility] 13:36:00 [place] [facility] s Body Mass Index 2018-10-02 34.7 kg/m2 [place] o f Calculated 13:36:00 [place] [facility] Temperature 2018-10-02 98.6 [degF] Method: Oral [facility] 13:36:00 [place] [facility] Heart Rate 2018-10-02 91 /min University of 13:36:00 [place] [facility] BP Systolic 2018-09-04 145 mm[Hg] Location: [facility]; [place] of 13:35:00 Position: [place] [facility] s Sitting BP Diastolic 2018-09-04 77 mm[Hg] Location: [facility]; [place] of 13:35:00 Position: [place] [facility] Sitting Height [...] BP Systolic 2018-08-09 147 mm[Hg] Location: [facility]; [place] of 11:31:00 Position: [place] [facility] Sitting BP Diastolic 2018-08-09 76 mm[Hg] Location: [facility]; [place] of 11:31:00 Position: [place] [facility] Sitting Height 2018-08-09 63.5 [in_us] University of 11:31:00 [place] [facility] Weight 2018-08-09 200.3125 [lb_av] University of 11:31:00 [place] [facility] Body Mass Index 2018-08-09 34.93 kg/m2 University o f Calculated 11:31:00 [place] [facility] s Temperature 2018-08-09 98.2 [degF] Method: Oral [place] of 11:31:00 [place] [facility] Heart Rate 2018-08-09 96 /min University of 11:31:00 [place] [facility] BP Systolic 2018-08-01 140 mm[Hg] Position: University of 16:06:00 Sitting [place] [facility] BP Diastolic 2018-08-01 81 mm[Hg] Position: University of 16:06:00 Sitting [place] [facility] Height 2018-08-01 65 [in_us] University of 16:06:00 [place] [facility] Weight 2018-08-01 196 [lb_av] University of 16:06:00 [place] [facility] Body Mass Index 2018-08-01 32.62 kg/m2 University o f Calculated 16:06:00 [place] [facility] s Temperature 2018-08-01 97.7 [degF] Method: Oral [facility] of 16::00 [place] [facility] Heart Rate 2018-08-01 98 /min [facility] 16:06:00 [place] [facility] s Procedures Procedure Date / Time Performing Clinician Source Performed [place] Stomach emptying [id number] 2018-09-05 00:00:00 Un [facility] Physicians [B] UPPER GI W/AIR 2018-09-05 00:00:00 [facility] Physicians History of Tonsillectomy [facility] With Adenoidectomy Physicians History of Tubal ligation [facility] bilateral Physicians History of Cholecystectomy Unive [facility] Physicians History of Hysterectomy [facility] total vaginal with removal Physi cians of both ovaries History of Colectomy [facility] Physicians History of Hernia Repair [facility] Physicians History of University of [place] Hemorrhoidectomy Physicians History of Mohs surgery [facility] Physicians History of Decompression [facility] of spinal cord Physicians History of Spinal Surgery [facility] - Allograft Physicians History of Achilles tendon Unive [facility] surgery Physicians History of Paraesophageal [facility] hiatal hernia repair Physicians Plan of Care Planned Activity Planned Date Details Comments Source Diagnostic Test 2018-09-05 [place] Stomach [facility] [place] Pending 00:00:00 emptying [id number] Physicians [code = 38987] Diagnostic Test 2018-09-05 [B] UPPER GI W/AIR [facility] Pending 00:00:00 [code = [B] UPPER Physicians GI W/AIR] Encounters Start End Encounter Admission Attending Care Care Encounter Source Date/Time Date/Time Type Type Clinicians Facility Department ID 2020-06-03 2020-06-03 Outpatient [facility] [id number] [place] 00:00:00 00:00:[address] 2020-06-03 2020-06-03 Outpatient [facility] [id number] [place] 00:00:00 00:00:[address] 2020-06-02 2020-06-02 Outpatient [facility] [id number] [place] 00:00:00 00:00:00 CHALINO [address] 2020-04-01 2020-04-01 Outpatient [facility] [id number] [place] 00:00:00 00:00:00 CHALINO [address] 2020-03-26 2020-03-26 Outpatient SASSARD, [facility] [id number] [place] 00:00:00 00:00:00 ELVI [address] 2020-02-20 2020-02-20 Outpatient AHUERO, [facility] [id number] [place] 00:00:00 00:00:00 ROSANNA [address] 2020-02-20 2020-02-20 Outpatient AHUERO, [facility] [id number] [place] 00:00:00 00:00:00 ROSANNA [address] 2020-02-09 2020-02-14 Outpatient MARIA ANTONIA, [facility] [id number] [place] 00:00:00 00:00:00 CHALINO [address] 2020-02-04 2020-02-04 Outpatient MARIA ANTONIA, [facility] [id number] [place] 00:00:00 00:00:00 CHALINO [address] 2019-12-16 2019-12-17 Outpatient MARIA ANTONIA, [facility] [id number] [place] 00:00:00 00:00:00 CHALINO [address] 2019-10-23 2019-10-23 Outpatient HAILY, [facility] [id number] [place] 00:00:00 00:00:00 TRAVIS [address] 2019-10-23 2019-10-23 Outpatient HAILY, [facility] [id number] [place] 00:00:00 00:00:00 TRAVIS [address] 2019-10-23 2019-10-23 Outpatient HAILY, [facility] [id number] [place] 00:00:00 00:00:00 TRAVIS [address] 2019-09-25 2019-09-25 Outpatient DAVID, ANTONINA [facility] [id number] [place] 00:00:00 00:00:[address] 2018-10-02 2018-10-02 PATRICIA Mallory Bartlett [id number] Univers 12:30:00 12:30:00 t; KARLY QUINTERO M.D. Surgery [place] M.D. Specialty [place] Physici ans 2018-09-12 2018-09-12 PATRICIA Mallory [id number] Univers 10:15:00 10:15:00 t; KARLY QUINTERO M.D. ity of TODD M.D. [place] [facility] 2018-09-04 2018-09-04 Appointmen PATRICIA QUINTERO [id number] Univers 12:45:00 12:45:00 t; KARLY QUINTERO M.D. Surgery Sunni M.D. Specialty [place] Physici ans 2018-08-07 2018-08-07 Appointmen PATRICIA QUINTERO [id number] Univers 15:30:00 15:30:00 t; KARLY QUINTERO M.D. Surgery Sunni M.D. Specialty [place] Physici ans 2018-08-01 2018-08-01 Appointmen PATRICIA CONTRERAS Otorhinolar [id number] [facility] 15:30:00 15:30:00 t; Anshul MUNGUIA yngology - alicia of [facility] Evert MUNGUIA M.D. [place] ans Results Test Description Test Time Test Comments Results Result Comments Source [facility] Report 2018-09-12 00:00:00 Test Item Value Reference Range Interpretation Comme nts REPORT (test code = REPORT) See Comment [facility] [id number] 15:30:00 Test Item Value Reference Range Interpretation Comments Completed (test code = Completed) DONE [facility] [place] [facility] Physicians
[2020-06-09] MEDS ORDERED: HEPARIN 500 UNIT/5 ML SYR IV ONE (11:40)
[2020-06-09 14:05] VITALS: BP 131/69; TEMP 98; O2SAT 99
[2020-06-09 14:11] VITALS: BMI 29.5
== END 2020-06-09 12:00 | disposition home or self-care (01) ==
LOC: DS 11:07
PROVIDERS: ATTEND Internal Medicine Gastroenterology
DX: Z45.2 Encounter for adjustment and management of vascular access device (principal)
CPT/HCPCS: 96523; J1642

== ENCOUNTER 2020-11-10 11:22 | Day surgery (SDC) | payer OTHER ==
[2020-11-10 11:53] VITALS: BP 137/67; TEMP 97.5; O2SAT 96
[2020-11-10] MEDS ORDERED: HEPARIN 500 UNIT/5 ML SYR IV ONE (11:57)
[2020-11-10 12:01] VITALS: BMI 29.5
== END 2020-11-10 12:30 | disposition home or self-care (01) ==
LOC: DS 11:22
PROVIDERS: ATTEND Internal Medicine Gastroenterology
DX: Z45.2 Encounter for adjustment and management of vascular access device (principal)
CPT/HCPCS: 96523; J1642

== ENCOUNTER 2021-03-30 10:06 | Day surgery (SDC) | payer OTHER ==
[2021-03-30] MEDS ORDERED: ALTEPLASE 2 MG/VIAL IV SCH (10:15)
[2021-03-30] MEDS ORDERED: WATER FOR INJ,STERILE 10 ML IV SCH (10:15)
[2021-03-30] MEDS ORDERED: HEPARIN 500 UNIT/5 ML SYR IV ONE (10:48)
[2021-03-30 14:08] VITALS: BP 159/80; TEMP 97; O2SAT 97; BMI 26.2
== END 2021-03-30 11:10 | disposition home or self-care (01) ==
LOC: DS 10:06
PROVIDERS: ATTEND Internal Medicine Gastroenterology
DX: Z45.2 Encounter for adjustment and management of vascular access device (principal)
CPT/HCPCS: 96523; J1642; J2997

== ENCOUNTER 2021-09-14 10:47 | Day surgery (SDC) | payer OTHER ==
[2021-09-14] MEDS ORDERED: HEPARIN 500 UNIT/5 ML SYR IV ONE (10:56)
[2021-09-14 19:37] VITALS: BP 134/85; TEMP 98.6; O2SAT 94; BMI 30.9
== END 2021-09-14 12:00 | disposition home or self-care (01) ==
LOC: DS 10:47
PROVIDERS: ATTEND Internal Medicine Gastroenterology
DX: Z45.2 Encounter for adjustment and management of vascular access device (principal)
CPT/HCPCS: 96523; J1642

== ENCOUNTER 2022-02-21 09:07 | Day surgery (SDC) | payer OTHER ==
[2022-02-21 09:40] VITALS: TEMP 97.8; O2SAT 94
[2022-02-21 09:53] VITALS: BMI 30.1
[2022-02-21] MEDS ORDERED: HEPARIN 500 UNIT/5 ML SYR IV ONE (10:27)
[2022-02-21 12:11] VITALS: BP 116/61
== END 2022-02-21 10:37 | disposition home or self-care (01) ==
LOC: DS 09:07
PROVIDERS: ATTEND Internal Medicine Gastroenterology
DX: Z45.2 Encounter for adjustment and management of vascular access device (principal)
CPT/HCPCS: 96523; J1642

== ENCOUNTER 2022-07-04 10:26 | Day surgery (SDC) | payer OTHER ==
[2022-07-04] MEDS ORDERED: HEPARIN 500 UNIT/5 ML SYR IV ONE (11:05)
[2022-07-04 14:21] VITALS: BP 123/73; O2SAT 95; BMI 28.0
[2022-07-04 14:24] VITALS: TEMP 98
== END 2022-07-04 11:52 | disposition home or self-care (01) ==
LOC: DS 10:26
PROVIDERS: ATTEND Internal Medicine Gastroenterology
DX: Z45.2 Encounter for adjustment and management of vascular access device (principal)
CPT/HCPCS: 96523; J1642

== ENCOUNTER 2022-11-23 08:00 | Day surgery (SDC) | payer OTHER ==
[2022-11-23] MEDS ORDERED: HEPARIN 500 UNIT/5 ML SYR IV ONE (08:20)
[2022-11-23 09:33] VITALS: BMI 28.8
[2022-11-23 09:40] VITALS: BP 134/69; TEMP 97.7; O2SAT 95
== END 2022-11-23 10:00 | disposition home or self-care (01) ==
LOC: DS 08:00
PROVIDERS: ATTEND Internal Medicine Gastroenterology
DX: Z45.2 Encounter for adjustment and management of vascular access device (principal); Z88.0 Allergy status to penicillin; Z88.2 Allergy status to sulfonamides; Z88.7 Allergy status to serum and vaccine
CPT/HCPCS: 96523; J1642